=== PATIENT | male | born 1945 | race Caucasian/White ===

== ENCOUNTER 2016-11-19 09:50 | Inpatient (IN) | payer MEDICARE, OTHER ==
[2016-11-19] VITALS (8 sets, daily range): BP systolic 71–83; BP diastolic 39–64; PULSE 80–106; RESP 16–26; TEMP 97.8–97.9; O2SAT 96–99
[~2016-11-19] VITALS: Ht 180.3 cm; Wt 69.0 kg
--- NOTE | 2016-11-19 10:07 | PD ---
HPI Chief Complaint: CP Time Seen by Provider: 10:04 Travel History International Travel<30 days: No Contact w/Intl Traveler<30days: No Traveled to known affect area: No History of Present Illness HPI [facility] WHEN HE DEVELOPED CHEST PRESSURE, NONRAD, 12/04, GIV[place] [facility] AT [place], HELD NTG DUE TO NOTED LOW BP OF 70'S CONFIRMED BY [facility], EMS STARTED IV AND GAVE 300ML OF NS. PATIENT'S CHEST PRESSURE IS DECREASED DOWN TO 0-1/ 10....UNSURE WHAT ALLEVIATED SYMPTOMS, NO AGGRAVATING SYMPTOMS. PT HAS PREVIOUS H/O 2 CARDIAC STENTS PFSH Past Medical History Hx Anticoagulant Therapy: Yes (asa) Cardiac Catheterization: Yes Cardiovascular Problems: Yes COPD: Yes Hypertension: Yes Musculoskeletal: Yes (MS ) Myocardial Infarction: Yes Past Surgical History Coronary Stent: Yes (X2) Social History Alcohol Use: No Tobacco Use: No (QUIT 3 YEARS AGO ) Substance Use: No Allergies-Medications (Allergen,Severity, Reaction): Coded Allergies: Oxacillin (Verified Allergy, Unknown, 11/19/16) Reported Meds & Prescriptions Reported Meds & Active Scripts Active Reported Losartan (Losartan Potassium) 25 Mg Tab 12.5 Mg PO DAILY Baclofen 10 Mg Tab 10 Mg PO TID Multi-Vitamin Daily (Multiple Vitamin) 1 Tab Tab 1 Tab PO DAILY Diclofenac Topical 1% Gel 1 Applic TOPICAL BID Amantadine (Amantadine HCl) 100 Mg Tab 200 Mg PO DAILY IN THE PM Amantadine (Amantadine HCl) 100 Mg Tab 100 Mg PO DAILY IN THE AM Alfuzosin HCl ER (Alfuzosin HCl) 10 Mg Tab 10 Mg PO DAILY Omeprazole 20 Mg Tab 40 Mg PO BID Take 30 minutes before meals twice a day Aspirin Adult Low Strength (Aspirin) 81 Mg Tabdr 81 Mg PO DAILY [place] Opth Drops (Ketotifen Opth Drops) 0.025% Drops 1 Drop EACH EYE BID Refresh Plus Unit-Dose 0.5% Opth (Carboxymethylcellulose Sodium 0.5% Opth) 0.5% Drops 1 Drop EACH EYE QID PRN Fexofenadine (Fexofenadine HCl) 180 Mg Tab 180 Mg PO DAILY Ensure Plus (Nutritional Supplements) 1 Liq Liq 1 Can PO TID Vitamin D3 (Cholecalciferol) 1,000 Unit Tab 2,000 Units PO DAILY IN THE PM Vitamin D3 (Cholecalciferol) 1,000 Unit Tab 1,000 Units PO DAILY IN THE AM Prednisone 5 Mg Tab 5 Mg PO DAILY Lasix (Furosemide) 20 Mg Tab 40 Mg PO MOWEFR Take 2 tablets (40mg) daily on Thursday,Thursday and Thursday Lasix (Furosemide) 20 Mg Tab 20 Mg PO SUTUTHSA Take 1 tablet (20mg) daily on Thursday,Thursday, and Thursday Potassium Chloride ER (Potassium Chloride) 20 Meq Tab 20 Meq PO DAILY Isosorbide Mononitrate ER (Isosorbide Mononitrate) 30 Mg Marla 30 Mg PO DAILY Coreg (Carvedilol) 6.25 Mg Tab 6.25 Mg PO BID Atorvastatin (Atorvastatin Calcium) 80 Mg Tab 80 Mg PO HS Review of Systems Except as stated in HPI: all other systems reviewed are Neg Cardiovascular: Positive: Chest Pain or Discomfort Physical Exam Narrative GENERAL: SKIN: Warm and dry. HEAD: Atraumatic. Normocephalic. EYES: Pupils equal and round. No scleral icterus. No injection or drainage. ENT: No nasal bleeding or discharge. Mucous membranes pink and moist. NECK: Trachea midline. No JVD. CARDIOVASCULAR: Regular rate and rhythm. RESPIRATORY: No accessory muscle use. Clear to auscultation. Breath sounds equal bilaterally. GASTROINTESTINAL: Abdomen soft, non-tender, nondistended. Hepatic and splenic margins not palpable. MUSCULOSKELETAL: Extremities without clubbing, cyanosis, or edema. No obvious deformities. NEUROLOGICAL: Awake and alert. No obvious cranial nerve deficits. Motor grossly within normal limits. Five out of 5 muscle strength in the arms and legs. Normal speech. PSYCHIATRIC: Appropriate mood and affect; insight and judgment normal. Data Data Last Documented VS Vital Signs Date Time Temp Pulse Resp B/P Pulse Ox O2 Delivery O2 Flow Rate FiO2 11/19/16 10:08 97 Room Air 11/19/16 10:08 17 11/19/16 10:08 82 83/52 82/49 11/19/16 10:01 97.9 Orders Electrocardiogram (11/19/16 10:07) B-Type Natriuretic Peptide (11/19/16 10:07) Ckmb (Isoenzyme) Profile (11/19/16 10:07) Complete Blood Count With Diff (11/19/16 10:07) Comprehensive Metabolic Panel (11/19/16 10:07) D-Dimer (11/19/16 10:07) Prothrombin Time / Inr (Pt) (11/19/16 10:07) Act Partial Throm Time (Ptt) (11/19/16 10:07) Troponin I (11/19/16 10:07) Lipase (11/19/16 10:07) Chest, Single Ap (11/19/16 10:07) Ecg Monitoring (11/19/16 10:07) Bilateral Bp Monitoring (11/19/16 10:07) Iv Access Insert/Monitor (11/19/16 10:07) Oximetry (11/19/16 10:07) Oxygen Administration (11/19/16 10:07) Sodium Chloride 0.9% Flush (Ns Flush) (11/19/16 10:15) Sodium Chlorid 0.9% 500 Ml Inj (Ns 500 M (11/19/16 10:15) Ventilation & Perfusion Scan (11/19/16 ) Labs Laboratory Tests Test 11/19/16 10:10 White Blood Count 17.1 TH/MM3 Red Blood Count 4.41 MIL/MM3 Hemoglobin 11.4 GM/DL Hematocrit 34.8 % Mean Corpuscular Volume 78.9 FL Mean Corpuscular Hemoglobin 25.8 PG Mean Corpuscular Hemoglobin 32.7 % Concent Red Cell Distribution Width 15.7 % Platelet Count 200 TH/MM3 Mean Platelet Volume 9.5 FL Neutrophils (%) (Auto) 94.4 % Lymphocytes (%) (Auto) 1.3 % Monocytes (%) (Auto) 2.7 % Eosinophils (%) (Auto) 0.6 % Basophils (%) (Auto) 1.0 % Neutrophils # (Auto) 16.1 TH/MM3 Lymphocytes # (Auto) 0.2 TH/MM3 Monocytes # (Auto) 0.5 TH/MM3 Eosinophils # (Auto) 0.1 TH/MM3 Basophils # (Auto) 0.2 TH/MM3 CBC Comment DIFF FINAL Differential Comment Prothrombin Time 14.8 SEC Prothromb Time International 1.3 RATIO Ratio Activated Partial 36.1 SEC Thromboplast Time D-Dimer Quantitative (PE/DVT) 1.47 MG/L FEU Sodium Level 136 MEQ/L Potassium Level 3.8 MEQ/L Chloride Level 101 MEQ/L Carbon Dioxide Level 22.9 MEQ/L Anion Gap 12 MEQ/L Blood Urea Nitrogen 30 MG/DL Creatinine 1.52 MG/DL Estimat Glomerular Filtration 45 ML/MIN Rate Random Glucose 166 MG/DL Calcium Level 8.2 MG/DL Total Bilirubin 0.5 MG/DL Aspartate Amino Transf 14 U/L (AST/SGOT) Alanine Aminotransferase 38 U/L (ALT/SGPT) Alkaline Phosphatase 122 U/L Total Creatine Kinase 36 U/L Troponin I 0.05 NG/ML B-Type Natriuretic Peptide 1302 PG/ML Total Protein 6.0 GM/DL Albumin 2.2 GM/DL Lipase 40 U/L MDM Medical Decision Making Medical Screen Exam Complete: Yes Emergency Medical Condition: Yes Medical Record Reviewed: Yes Interpretation(s) NSR 84, BIFASCICULAR BLOCK WITH SINUS ARRHYTHMIA NOTED...NONSPEC STT CHANGES Differential Diagnosis VT V NONSTEMI V PNA V PTX V PE Narrative Course PATIENT WAS FOUND TO HAVE RENAL INSUFFICIENCY, ELEV DDIMER AND THUS HIGH RISK IF CT ANGIO PE, INSTEAD V/Q SCAN ORDERED TO R/O PULM EMBOLUS CAUSE OF CP. ADDITIONALLY, CASE D/W [facility]PAS FOR ADMISSION, HOWEVER DUE TO MULTIPLE LAB ABNORMALITIES NOT A SECURITY ADMINISTRATOR CANDIDATE....CXR NEG FOR CONSOLIDATION/SUGGESTION OF PNA.. Diagnosis Primary Impression: CP R/O VT Additional Impressions: LEUKOCYTOSIS NOS ELEVATED BNP,D DIMER Admitting Information Admitting Physician Requests: Observation Isidro Bruce MD Nov 19, 2016 10:07
[2016-11-19] MEDS ORDERED: SODIUM CHLORIDE 0.9% FLUSH 10 ML FLUSH IVF PRN (10:15)
[2016-11-19] MEDS ORDERED: SODIUM CHLORID 0.9% 500 ML INJ 500 ML IV ONE (10:15)
[2016-11-19 10:46] LABS: AUTOMATED NEUTROPHIL # 16.1 TH/MM3 (1.8-7.7); BASOPHIL # 0.2 TH/MM3 (0-0.2); EOSINOPHIL # 0.1 TH/MM3 (0-0.4); EOSINOPHIL % 0.6 % (0.0-4.0); HEMATOCRIT 34.8 % (39.0-51.0); HEMO FLAGS DIFF FINAL; LYMPH % 1.3 % (9.0-44.0); LYMPHOCYTE # 0.2 TH/MM3 (1.0-4.8); MEAN CELL VOLUME 78.9 FL (80.0-100.0); MEAN CORPUSCULAR HEMOGLOBIN 25.8 PG (27.0-34.0); MEAN CORPUSCULAR HGB CONC 32.7 % (32.0-36.0); MONO % 2.7 % (0.0-8.0); NEUT % 94.4 % (16.0-70.0); PLATELET COUNT 200 TH/MM3 (150-450); RED BLOOD COUNT 4.41 MIL/MM3 (4.50-5.90); RED CELL DISTRIBUTION WIDTH 15.7 % (11.6-17.2); WHITE BLOOD COUNT 17.1 TH/MM3 (4.0-11.0)
[2016-11-19 11:00] LABS: APTT (PATIENT) 36.1 SEC (24.3-30.1); INTERNATIONAL NORMALIZED RATIO 1.3 RATIO; PROTHROMBIN TIME - PATIENT 14.8 SEC (9.8-11.6)
[2016-11-19 11:17] LABS: ALT (GPT) 38 U/L (12-78); ANION GAP 12 MEQ/L (5-15); AST (GOT) 14 U/L (15-37); BICARBONATE 22.9 MEQ/L (21.0-32.0); BLOOD UREA NITROGEN 30 MG/DL (7-18); CHLORIDE 101 MEQ/L (98-107); GLOMERULAR FILTRATION RATE 45 ML/MIN (>89); POTASSIUM 3.8 MEQ/L (3.5-5.1); SODIUM (NA) 136 MEQ/L (136-145)
[2016-11-19 11:20] LABS: ALKALINE PHOSPHATASE 122 U/L (45-117); TOTAL BILIRUBIN ADULT 0.5 MG/DL (0.2-1.0)
[2016-11-19 11:22] LABS: CREATINE KINASE 36 U/L (39-308)
[2016-11-19] MEDS ORDERED: AMAN100T PO ×2 (11:58)
[2016-11-19] MEDS ORDERED: ALFU10TA3 PO (11:58)
[2016-11-19] MEDS ORDERED: ATOR1TAB18 PO (11:58)
[2016-11-19] MEDS ORDERED: ASPI1TAB91 PO (11:58)
[2016-11-19] MEDS ORDERED: LOSA25TA PO (11:58)
[2016-11-19] MEDS ORDERED: ALAW0.02 EACH EYE (11:58)
[2016-11-19] MEDS ORDERED: PRED5TAB PO (11:58)
[2016-11-19] MEDS ORDERED: FEXO180T PO (11:58)
[2016-11-19] MEDS ORDERED: DICL1GEL7 TOPICAL (11:58)
[2016-11-19] MEDS ORDERED: VITA100064 PO ×2 (11:58)
[2016-11-19] MEDS ORDERED: CARV6.25 PO (11:58)
[2016-11-19] MEDS ORDERED: MULT-65 PO (11:58)
[2016-11-19] MEDS ORDERED: POTA-163 PO (11:58)
[2016-11-19] MEDS ORDERED: BACL10TA PO (11:58)
[2016-11-19] MEDS ORDERED: REFR0.5D9 EACH EYE (11:58)
[2016-11-19] MEDS ORDERED: OMEP20TA PO (11:58)
[2016-11-19] MEDS ORDERED: ENSULIQ8 PO (11:58)
[2016-11-19] MEDS ORDERED: FURO1TAB62 PO ×2 (11:58)
[2016-11-19] MEDS ORDERED: ISOS30TA3 PO (11:58)
--- NOTE | 2016-11-19 12:06 | RADRPT ---
EXAM DATE/TIME: 11/19/2016 10:29 [facility] COMPARISON: CHEST SINGLE AP, December 15, 2015, 14:54. INDICATIONS : Chest pain, short of breath. MEDICAL HISTORY : Chronic obstructive pulmonary disease. Multiple sclerosis. Myocardial infarct ion. SURGICAL HISTORY : Coronary artery stent. ENCOUNTER: Initial ACUITY: 1 day PAIN SCORE: 6/10 LOCATION: Bilateral chest FINDINGS: Linear scarring noted in the right upper lobe. Minimal interstitial prominence unchanged from prior e xam. Cardiomediastinal contours are stable with continued mild prominence of the mediastinum likely d ue to tortuous aorta. Remainder of the exam is unchanged. CONCLUSION: 1. No acute cardiopulmonary disease. Khadar Thakkar MD on November 19, 2016 at 12:03 Board Certified Radiologist. This report was verified electronically.
[2016-11-19] MEDS ORDERED: SODIUM CHLORIDE 0.9% FLUSH 10 ML FLUSH IV FLUSH PRN (13:15)
[2016-11-19] MEDS ORDERED: ACETAMINOPHEN 325 MG TAB PO PRN ×2 (13:15)
[2016-11-19] MEDS ORDERED: NALOXONE HCL 0.4 MG/ML AMP IV PRN (13:15)
--- NOTE | 2016-11-19 13:53 | RADRPT ---
EXAM DATE/TIME: 11/19/2016 12:46 [facility] COMPARISON: CHEST SINGLE AP, November 19, 2016, 10:29. INDICATIONS : Chest pain and dyspnea. DOSE: 8.8 mCi Tc99m MAA IV 1.4 mCi Tc99m DTPA aerosol MEDICAL HISTORY : Chronic obstructive pulmonary disease. Multiple sclerosis. Myocardial infarction. Hypertension. SURGICAL HISTORY : Coronary artery stent. ENCOUNTER: Initial ACUITY: 1 day PAIN SCALE: 4/10 LOCATION: Left chest TECHNIQUE: Following five minutes of tidal breathing of DTPA aerosol, planar images of the lungs were performed in eight projections. The patient was then injected with MAA, and eight-view perfusion scan was perf ormed. FINDINGS: There are small nonsegmental and occasional matched ventilation/perfusion abnormalities. No significa nt mismatches are identified to indicate likelihood of pulmonary embolism. CONCLUSION: Low probability scan for pulmonary embolism. Rod Hdez MD on November 19, 2016 at 13:47 Board Certified Radiologist. This report was verified electronically.
--- NOTE | 2016-11-19 14:42 | HHI.HP ---
[facility] Admission Diagnosis CP R/O ND, ELEVATED BNP/D DIMER R/O PE Diagnoses: (1) Atypical chest pain (2) Acute on chronic systolic congestive heart failure (3) Acute renal failure Chief Complaint: Chest pressure Travel History International Travel<30 Days: No Contact w/Intl Traveler <30 Da: No Traveled to Known Affected Are: No History of Present Illness 21-year-old male with a history of systolic CHF, coronary artery disease was sent from the [place] to the ED for evaluation of an acute onset of chest pressure as well as hypotension while patient was awaiting for his appointment today. Patient states around 7:30 AM he experience chest pressure rated 7/10 in intensity associated with lightheadedness, dizziness along with shortness of breath. EMS was called, and patient was noted to have low BP for which he was given 300 cc bolus. Patient during my exam denies any chest pain or pressure has no bilateral lower extremity edema. Over his blood pressure remained low but patient is asymptomatic. BNP of 1300+ however chest x-ray without any evidence of pulmonary edema Review of Systems Except as stated in HPI: all other systems reviewed are Neg Past Family Social History Past Medical History Cardiovascular Problems: Yes COPD: Yes Hypertension: Yes Myocardial Infarction Past Surgical History Coronary Stent: Yes (X2) Reported Medications Losartan (Losartan Potassium) 25 Mg Tab 12.5 Mg PO DAILY Baclofen 10 Mg Tab 10 Mg PO TID Multi-Vitamin Daily (Multiple Vitamin) 1 Tab Tab 1 Tab PO DAILY Diclofenac Topical 1% Gel 1 Applic TOPICAL BID Amantadine (Amantadine HCl) 100 Mg Tab 200 Mg PO DAILY IN THE PM Amantadine (Amantadine HCl) 100 Mg Tab 100 Mg PO DAILY IN THE AM Alfuzosin HCl ER (Alfuzosin HCl) 10 Mg Tab 10 Mg PO DAILY Omeprazole 20 Mg Tab 40 Mg PO BID Take 30 minutes before meals twice a day Aspirin Adult Low Strength (Aspirin) 81 Mg Tabdr 81 Mg PO DAILY [place] Opth Drops (Ketotifen Opth Drops) 0.025% Drops 1 Drop EACH EYE BID Refresh Plus Unit-Dose 0.5% Opth (Carboxymethylcellulose Sodium 0.5% Opth) 0.5% Drops 1 Drop EACH EYE QID PRN Fexofenadine (Fexofenadine HCl) 180 Mg Tab 180 Mg PO DAILY Ensure Plus (Nutritional Supplements) 1 Liq Liq 1 Can PO TID Vitamin D3 (Cholecalciferol) 1,000 Unit Tab 2,000 Units PO DAILY IN THE PM Vitamin D3 (Cholecalciferol) 1,000 Unit Tab 1,000 Units PO DAILY IN THE AM Prednisone 5 Mg Tab 5 Mg PO DAILY Lasix (Furosemide) 20 Mg Tab 40 Mg PO MOWEFR Take 2 tablets (40mg) daily on Thursday,Thursday and Thursday Lasix (Furosemide) 20 Mg Tab 20 Mg PO SUTUTHSA Take 1 tablet (20mg) daily on Thursday,Thursday, and Thursday Potassium Chloride ER (Potassium Chloride) 20 Meq Tab 20 Meq PO DAILY Isosorbide Mononitrate ER (Isosorbide Mononitrate) 30 Mg Marla 30 Mg PO DAILY Coreg (Carvedilol) 6.25 Mg Tab 6.25 Mg PO BID Atorvastatin (Atorvastatin Calcium) 80 Mg Tab 80 Mg PO HS Allergies: Coded Allergies: Oxacillin (Verified Allergy, Unknown, 11/19/16) Family History Mother had CVA, CAD and myocardial infarction Social History Alcohol Use: No Tobacco Use: No (QUIT 3 YEARS AGO ) Substance Use: No Physical Exam Vital Signs Vital Signs Date Time Temp Pulse Resp B/P Pulse Ox O2 Delivery O2 Flow Rate FiO2 11/19/16 14:05 80 16 71/39 96 Nasal Cannula 2 11/19/16 10:08 97 Room Air 11/19/16 10:08 17 97 Room Air 11/19/16 10:08 82 17 83/52 97 Room Air 82/49 11/19/16 10:02 86 17 97 Room Air 11/19/16 10:01 97.9 86 17 83/52 98 Physical Exam GENERAL: This is a well-nourished, well-developed patient, in no apparent distress. SKIN: No rashes, ecchymoses or lesions. Cool and dry. HEAD: Atraumatic. Normocephalic. No temporal or scalp tenderness. EYES: Pupils equal round and reactive. Extraocular motions intact. No scleral icterus. No injection or drainage. ENT: Nose without bleeding, purulent drainage or septal hematoma. Throat without erythema, tonsillar hypertrophy or exudate. Uvula midline. Airway patent. NECK: Trachea midline. No JVD or lymphadenopathy. Supple, nontender, no meningeal signs. CARDIOVASCULAR: Regular rate and rhythm without murmurs, gallops, or rubs. RESPIRATORY: Clear to auscultation. Breath sounds equal bilaterally. No wheezes , rales, or rhonchi. GASTROINTESTINAL: Abdomen soft, non-tender, nondistended. No hepato-splenomegaly , or palpable masses. No guarding. MUSCULOSKELETAL: Extremities without clubbing, cyanosis, or edema. No joint tenderness, effusion, or edema noted. No calf tenderness. Negative Homans sign bilaterally. NEUROLOGICAL: Awake and alert. Cranial nerves II through XII intact. Motor and sensory grossly within normal limits. Five out of 5 muscle strength in all muscle groups. Normal speech. Laboratory Laboratory Tests Test 11/19/16 10:10 White Blood Count 17.1 Red Blood Count 4.41 Hemoglobin 11.4 Hematocrit 34.8 Mean Corpuscular Volume 78.9 Mean Corpuscular Hemoglobin 25.8 Mean Corpuscular Hemoglobin 32.7 Concent Red Cell Distribution Width 15.7 Platelet Count 200 Mean Platelet Volume 9.5 Neutrophils (%) (Auto) 94.4 Lymphocytes (%) (Auto) 1.3 Monocytes (%) (Auto) 2.7 Eosinophils (%) (Auto) 0.6 Basophils (%) (Auto) 1.0 Neutrophils # (Auto) 16.1 Lymphocytes # (Auto) 0.2 Monocytes # (Auto) 0.5 Eosinophils # (Auto) 0.1 Basophils # (Auto) 0.2 CBC Comment DIFF FINAL Differential Comment Prothrombin Time 14.8 Prothromb Time International 1.3 Ratio Activated Partial 36.1 Thromboplast Time D-Dimer Quantitative (PE/DVT) 1.47 Sodium Level 136 Potassium Level 3.8 Chloride Level 101 Carbon Dioxide Level 22.9 Anion Gap 12 Blood Urea Nitrogen 30 Creatinine 1.52 Estimat Glomerular Filtration 45 Rate Random Glucose 166 Calcium Level 8.2 Total Bilirubin 0.5 Aspartate Amino Transf 14 (AST/SGOT) Alanine Aminotransferase 38 (ALT/SGPT) Alkaline Phosphatase 122 Total Creatine Kinase 36 Troponin I 0.05 B-Type Natriuretic Peptide 1302 Total Protein 6.0 Albumin 2.2 Lipase 40 Result Diagram: 11/19/16 1010 11/19/16 1010 Imaging Last Impressions Chest X-Ray 11/19/16 1007 Signed Impressions: Service Date/Time: Saturday, November 19, 2016 10:29 - CONCLUSION: 1. No acute cardiopulmonary disease. Khadar Thakkar MD Lung Scan-VQ Nuclear Medicine 11/19/16 0000 Signed Impressions: Service Date/Time: Saturday, November 19, 2016 12:46 - CONCLUSION: Low probability scan for pulmonary embolism. Rod Hdez MD Assessment and Plan Problem List: (1) Atypical chest pain ICD Code: R07.89 Status: Acute (2) Acute on chronic systolic congestive heart failure ICD Code: I50.23 Status: Acute (3) Acute renal failure ICD Code: N17.9 Status: Acute Assessment and Plan 71-year-old man with Atypical chest pain ACS rule out per protocol with serial cardiac enzyme and EKGs Consider stress test if abnormal cardiac enzyme Nitroglycerin contraindicated secondary to hypotension VQ scan with low probability for PE Continue aspirin and statin, however hold beta abliio secondary to hypotension Resume Imdur in a.m. 2-D echo pending Systolic CHF Chest x-ray noted and review by me without any cardio pulmonary disease Due to hypotension with hold Lasix Resume Imdur in a.m. Hypotension Will give 300cc bolus NS and monitor Hold beta abilio Hyperlipidemia Resume statin DVT prophylaxis: Bilateral SCDs Code Status Full code Discussed Condition With Patient, ED physician Physician Certification 2 Midnight Certification Type: Admission for Inpatient Services Order for Inpatient Services The services are ordered in accordance with Medicare regulations or non- Medicare payer requirements, as applicable. In the case of services not specified as inpatient-only, they are appropriately provided as inpatient services in accordance with the 2-midnight benchmark. Estimated LOS (days): 2 days is the estimated time the patient will need to remain in the hospital, assuming treatment plan goals are met and no additional complications. Post-Hospital Plan: Not yet determined Liang Shaikh MD Nov 19, 2016 14:42
[2016-11-19] MEDS ORDERED: SODIUM CHLOR 0.9% 250 ML INJ 250 ML IV ONE (15:30)
--- NOTE | 2016-11-19 20:12 | EKG ---
Date Performed: 11/19/2016 Time Performed: 10:08:28 PTAGE: 71 years EKG: Sinus rhythm WITH SINUS ARRHYTHMIA RIGHT BUNDLE BRANCH BLOCK LEFT ANTERIOR FASCICULAR BLOCK OLD ANTEROSEPTAL MYOC ARDIAL INFARCTION ABNORMAL ECG PREVIOUS TRACING : 12/15/2015 16.07 Compared to prior tracing no significant change DOCTOR: Laurence Sylvester Interpretating Date/Time 11/19/2016 20:11:51
[2016-11-19] MEDS: ATORVASTATIN 80 MG TAB PO SCH (22:39)
[2016-11-19] MEDS: SODIUM CHLORIDE 0.9% FLUSH 10 ML FLUSH IV FLUSH SCH (22:39)
[2016-11-20] VITALS (16 sets, daily range): BP systolic 85–124; BP diastolic 51–66; PULSE 82–126; RESP 14–20; TEMP 97.2–98.6; O2SAT 94–98
[2016-11-20 07:27] LABS: AUTOMATED NEUTROPHIL # 14.9 TH/MM3 (1.8-7.7); BASOPHIL # 0.1 TH/MM3 (0-0.2); BASOPHIL % 0.7 % (0.0-2.0); EOSINOPHIL # 0.2 TH/MM3 (0-0.4); EOSINOPHIL % 1.2 % (0.0-4.0); HEMATOCRIT 34.1 % (39.0-51.0); HEMO FLAGS DIFF FINAL; LYMPH % 2.6 % (9.0-44.0); LYMPHOCYTE # 0.4 TH/MM3 (1.0-4.8); MEAN CELL VOLUME 79.4 FL (80.0-100.0); MEAN CORPUSCULAR HEMOGLOBIN 25.8 PG (27.0-34.0); MEAN CORPUSCULAR HGB CONC 32.4 % (32.0-36.0); MONO % 3.6 % (0.0-8.0); NEUT % 91.9 % (16.0-70.0); PLATELET COUNT 214 TH/MM3 (150-450); RED CELL DISTRIBUTION WIDTH 16.1 % (11.6-17.2); WHITE BLOOD COUNT 16.2 TH/MM3 (4.0-11.0)
[2016-11-20] MEDS: predniSONE 5 MG TAB PO SCH (07:59)
[2016-11-20] MEDS: ASPIRIN EC 81 MG TABEC PO SCH (08:00)
[2016-11-20] MEDS: SODIUM CHLORIDE 0.9% FLUSH 10 ML FLUSH IV FLUSH SCH ×2 (08:00→20:28)
[2016-11-20] MEDS: ISOSORBIDE MONONITRATE 30 MG TAB PO SCH (08:01)
[2016-11-20 08:06] LABS: ANION GAP 10 MEQ/L (5-15); AST (GOT) 14 U/L (15-37); BICARBONATE 22.8 MEQ/L (21.0-32.0); BLOOD UREA NITROGEN 38 MG/DL (7-18); CHLORIDE 104 MEQ/L (98-107); GLOMERULAR FILTRATION RATE 40 ML/MIN (>89); POTASSIUM 4.3 MEQ/L (3.5-5.1); SODIUM (NA) 137 MEQ/L (136-145)
[2016-11-20 08:07] LABS: ALT (GPT) 34 U/L (12-78)
[2016-11-20 08:10] LABS: ALKALINE PHOSPHATASE 148 U/L (45-117); TOTAL BILIRUBIN ADULT 0.6 MG/DL (0.2-1.0)
[2016-11-20] MEDS: AMANTADINE HCL 100 MG CAP PO SCH (08:14)
--- NOTE | 2016-11-20 08:37 | HHI.PR ---
Subjective Remarks Follow up shortness of breath 11/20/16-patient seen and examined; denies any significant shortness of breath or chest pain. BP low but patient is asymptomatic; HR slightly up.Afebrile Objective Vitals Vital Signs Date Time Temp Pulse Resp B/P Pulse Ox O2 Delivery O2 Flow Rate FiO2 11/20/16 01:49 97.2 109 18 94/52 96 11/20/16 00:00 96 20 96/58 98 Nasal Cannula 2 11/19/16 22:41 106 26 82/64 98 Room Air 11/19/16 21:35 90 18 83/52 98 Room Air 11/19/16 20:00 90 19 78/48 Room Air 11/19/16 18:35 80/52 11/19/16 17:15 97.8 84 16 80/51 99 Room Air 11/19/16 14:05 80 16 71/39 96 Nasal Cannula 2 11/19/16 10:08 97 Room Air 11/19/16 10:08 17 97 Room Air 11/19/16 10:08 82 17 83/52 97 Room Air 82/49 11/19/16 10:02 86 17 97 Room Air 11/19/16 10:01 97.9 86 17 83/52 98 Result Diagram: 11/20/16 0607 11/20/16 0607 Imaging Last Impressions Chest X-Ray 11/19/16 1007 Signed Impressions: Service Date/Time: Saturday, November 19, 2016 10:29 - CONCLUSION: 1. No acute cardiopulmonary disease. Khadar Thakkar MD Lung Scan- Nuclear Medicine 11/19/16 0000 Signed Impressions: Service Date/Time: Saturday, November 19, 2016 12:46 - CONCLUSION: Low probability scan for pulmonary embolism. Rod Hdez MD Objective Remarks GENERAL: NAD SKIN: Warm and dry. HEAD: Normocephalic. EYES: No scleral icterus. No injection or drainage. NECK: Supple, trachea midline. No JVD or lymphadenopathy. CARDIOVASCULAR: Regular rate and rhythm without murmurs, gallops, or rubs. RESPIRATORY: Breath sounds decrease in Left lung bilaterally. No accessory muscle use. GASTROINTESTINAL: Abdomen soft, non-tender, nondistended. MUSCULOSKELETAL: No cyanosis, or edema. BACK: Nontender without obvious deformity. No CVA tenderness. A/P Problem List: (1) Atypical chest pain ICD Code: R07.89 Status: Acute (2) Acute on chronic systolic congestive heart failure ICD Code: I50.23 Status: Acute (3) Acute renal failure ICD Code: N17.9 Status: Acute (4) Hypotension ICD Code: I95.9 Status: Acute Assessment and Plan 71-year-old man with Atypical chest pain ACS ruled out per protocol with serial cardiac enzyme and EKGs Consider stress test if abnormal cardiac enzyme Nitroglycerin contraindicated secondary to hypotension VQ scan with low probability for PE Continue aspirin and statin, however hold beta abilio secondary to hypotension 2-D echo pending Systolic CHF Chest x-ray noted and review by me without any cardio pulmonary disease Due to hypotension with hold Lasix Imdur with holding parameters Hypotension Start Midodrine 5mg TID Hold all oral anti hypertensive meds Hyperlipidemia continue statin DVT prophylaxis: Bilateral SCDs Liang Shaikh MD Nov 20, 2016 08:37
[2016-11-20] MEDS ORDERED: RESP: ALBUTEROL 2.5 MG/IPRATROPIUM 0.5 MG NEB (PRN) NEB (08:45)
[2016-11-20] MEDS: MIDODRINE 5 MG TAB PO SCH ×3 (10:00→17:00)
--- NOTE | 2016-11-20 11:15 | ECHRPT ---
Indication: Heart failure, unspecified CONCLUSIONS The left ventricular systolic function is severely reduced with an estimated ejection fraction in th e range of 20-25%. Moderately dilated left ventricle. Global hypokineses with apical akinesis. The left atrial size is mildly dilated. No mitral valve stenosis moderate valve regurgitation. [id number] mitral valve regurgitation. The pulmonary valve is not well visualized. BP: 82 / 49 HR: 82 Rhythm: MEASUREMENTS (Male / Female) Normal Values Technical Quality:Good 2D ECHO LV Diastolic Diameter PLAX 6.6 cm 4.2 - 5.9 / 3.9 - 5.3 cm LV Systolic Diameter PLAX 5.8 cm IVS Diastolic Thickness 0.7 cm 0.6 - 1.0 / 0.6 - 0.9 cm LVPW Diastolic Thickness 0.8 cm 0.6 - 1.0 / 0.6 - 0.9 cm LV Relative Wall Thickness 0.2 RV Internal Dim ED PLAX 1.8 cm M-MODE Aortic Root Diameter MM 2.9 cm LA Systolic Diameter MM 4.2 cm LA Ao Ratio MM 1.4 AV Cusp Separation MM 1.7 cm DOPPLER Mitral E Point Velocity 85.9 cm/s Mitral A Point Velocity 55.8 cm/s Mitral E to A Ratio 1.5 LV E' Lateral Velocity 7.3 cm/s Mitral E to LV E' Lateral Ratio 11.8 FINDINGS LEFT VENTRICLE The left ventricular systolic function is severely reduced with an estimated ejection fraction in th e range of 20-25%. Moderately dilated left ventricle. Global hypokineses with apical akinesis. RIGHT VENTRICLE Normal right ventricular size and systolic function. LEFT ATRIUM The left atrial size is mildly dilated. RIGHT ATRIUM The right atrial size is normal. ATRIAL SEPTUM Normal atrial septal thickness without atrial level shunting by limited color doppler interrogation. AORTA The aortic root and proximal ascending aorta are normal in size on limited imaging. MITRAL VALVE Structurally normal mitral valve. No mitral valve stenosis moderate valve regurgitation. Structurally normal mitral valve. [id number] mitral valve regurgitation. AORTIC VALVE Trileaflet aortic valve. No aortic valve stenosis or regurgitation. TRICUSPID VALVE Structurally normal tricuspid valve. No tricuspid valve stenosis or regurgitation. PULMONARY VALVE The pulmonary valve is not well visualized. VESSELS The inferior vena cava is normal in size. PERICARDIUM No pericardial effusion. Donte Alicea MD (Electronically Signed) Final Date:20 November 2016 11:14
--- NOTE | 2016-11-20 12:39 | EKG ---
Date Performed: 11/20/2016 Time Performed: 09:16:02 PTAGE: 71 years EKG: Sinus rhythm RIGHT BUNDLE BRANCH BLOCK LEFT ANTERIOR FASCICULAR BLOCK ANTERIOR MYOCARDIAL INFARCTION ABNORMAL ECG PREVIOUS TRACING : 11/19/2016 22.33 DOCTOR: Cosme Pacheco Interpretating Date/Time 11/20/2016 12:37:00
--- NOTE | 2016-11-20 12:49 | EKG ---
Date Performed: 11/19/2016 Time Performed: 22:33:00 PTAGE: 71 years EKG: SINUS TACHYCARDIA RIGHT BUNDLE BRANCH BLOCK LEFT ANTERIOR FASCICULAR BLOCK ANTEROSEPTAL RAQUEL CARDIAL INFARCTION ABNORMAL ECG PREVIOUS TRACING : 11/19/2016 16.15 DOCTOR: Cosme Pacheco Interpretating Date/Time 11/20/2016 12:46:32
--- NOTE | 2016-11-20 12:56 | EKG ---
Date Performed: 11/19/2016 Time Performed: 16:15:14 PTAGE: 71 years EKG: Sinus rhythm MARKED LEFT AXIS DEVIATION INTRAVENTRICULAR CONDUCTION DELAY ANTEROSEPTAL MYOCARDIAL INFARCTION ABNO RMAL ECG PREVIOUS TRACING : 11/19/2016 10.08 DOCTOR: Cosme Pacheco Interpretating Date/Time 11/20/2016 12:51:29
--- NOTE | 2016-11-20 13:51 | HHI.PR ---
Addendum to Inpatient Note Addendum Reason: Additional Documentation Additional Information Left lower inner buttock wound infection Wound care consult Obtain wound and blood cultures Start vancomycin IV daily A-fib with RVR Will try PO Amiodarone now and consider drip if no improvement Cardizem and BB contraindicated due to severe Hypotension Liang Shaikh MD Nov 20, 2016 13:51
[2016-11-20] MEDS ORDERED: VANCOMYCIN INJ 1,000 MG in SODIUM CHLOR 0.9% 250 ML INJ 250 ML IV SCH (14:00)
[2016-11-20] MEDS ORDERED: Vancomycin Consult Pharmacy 1 EA OTHER SCH (14:00)
[2016-11-20 14:46] LABS: BACTERIA, URINE RARE /hpf; BLOOD, URINE NEG (NEG); COMMENT (UR) CULTURE INDICATED; CULTURE IF INDICATED CULTURE INDICATED; GLUCOSE,URINE NEG (NEG); KETONE, URINE NEG (NEG); NITRITE,URINE NEG (NEG); PH, URINE 5.5 (5.0-8.5); URINE COLOR YELLOW (YELLW/STRAW)
[2016-11-20] MEDS ORDERED: AMIODARONE 200 MG TAB PO ONE (16:00)
[2016-11-20] MEDS ORDERED: PIPERACIL-TAZO 2.25 GM PREMIX 50 ML IV SCH (18:00)
[2016-11-20] MEDS: ATORVASTATIN 80 MG TAB PO SCH (20:27)
[2016-11-21] VITALS (28 sets, daily range): BP systolic 89–108; BP diastolic 56–66; PULSE 84–98; RESP 18–20; TEMP 97.7–98.9; O2SAT 94–98
[2016-11-21] MEDS: MIDODRINE 5 MG TAB PO SCH ×3 (05:55→17:49)
[2016-11-21] MEDS: ASPIRIN EC 81 MG TABEC PO SCH (08:35)
[2016-11-21] MEDS: ISOSORBIDE MONONITRATE 30 MG TAB PO SCH (08:35)
[2016-11-21] MEDS: SODIUM CHLORIDE 0.9% FLUSH 10 ML FLUSH IV FLUSH SCH ×2 (08:35→21:27)
[2016-11-21] MEDS: predniSONE 5 MG TAB PO SCH (08:35)
[2016-11-21] MEDS: AMANTADINE HCL 100 MG CAP PO SCH (08:57)
--- NOTE | 2016-11-21 09:30 | HHI.PR ---
Subjective Remarks Follow up shortness of breath 11/20/16-patient seen and examined; denies any significant shortness of breath or chest pain. BP low but patient is asymptomatic; HR slightly up.Afebrile 11/21/16-patient seen and examined, he was started yesterday on IV antibiotic secondary to left lower inner buttock wound and is currently afebrile. Patient was treated with amiodarone 200 mg 1 due to A. fib with RVR and patient currently rate control. Denies any chest pain or shortness of breath. Objective Vitals Vital Signs Date Time Temp Pulse Resp B/P Pulse Ox O2 Delivery O2 Flow Rate FiO2 11/21/16 09:01 96 11/21/16 08:15 97.7 91 18 89/60 94 11/21/16 08:15 88 11/21/16 07:01 91 11/21/16 06:00 92 11/21/16 05:01 92 11/21/16 04:03 98.4 90 20 97/65 97 11/21/16 04:00 88 11/21/16 03:00 88 11/21/16 02:00 90 11/21/16 01:00 86 11/21/16 00:00 87 11/20/16 23:19 98.6 84 20 89/56 96 11/20/16 23:00 82 11/20/16 22:00 82 11/20/16 21:00 94 11/20/16 20:00 92 11/20/16 19:26 120 11/20/16 19:26 97.8 120 20 100/66 96 11/20/16 18:00 126 11/20/16 17:00 88 11/20/16 16:30 126 11/20/16 16:30 97.7 124 18 85/65 95 11/20/16 15:59 98.4 110 14 124/54 94 11/20/16 15:04 118 92/54 Automatic Cuff 11/20/16 12:47 98.2 90 18 99/53 94 11/20/16 10:14 95 11/20/16 09:54 97.6 96 18 94/51 95 I/O 11/20/16 11/20/16 11/20/16 11/21/16 11/21/16 11/21/16 07:00 15:00 23:00 07:00 15:00 23:00 Intake Total 640 ml 200 ml Output Total 0 ml 100 ml Balance 640 ml 100 ml Intake Oral 340 ml 200 ml IV Total 300 ml 0 ml Output Urine Total 100 ml Emesis 0 ml 0 ml # Voids 3 3 # Bowel Movements 0 0 Result Diagram: 11/20/16 0607 11/21/16 0449 Imaging Last Impressions Chest X-Ray 11/19/16 1007 Signed Impressions: Service Date/Time: Saturday, November 19, 2016 10:29 - CONCLUSION: 1. No acute cardiopulmonary disease. Khadar Thakkar MD Lung Scan-VQ Nuclear Medicine 11/19/16 0000 Signed Impressions: Service Date/Time: Saturday, November 19, 2016 12:46 - CONCLUSION: Low probability scan for pulmonary embolism. Rod Hdez MD Objective Remarks GENERAL: NAD SKIN: Warm and dry. HEAD: Normocephalic. EYES: No scleral icterus. No injection or drainage. NECK: Supple, trachea midline. No JVD or lymphadenopathy. CARDIOVASCULAR: Regular rate and rhythm without murmurs, gallops, or rubs. RESPIRATORY: Breath sounds decrease in Left lung bilaterally. No accessory muscle use. GASTROINTESTINAL: Abdomen soft, non-tender, nondistended. MUSCULOSKELETAL: No cyanosis, or edema. BACK: Nontender without obvious deformity. No CVA tenderness. Dressing over left lower inner buttock wound A/P Problem List: (1) Atypical chest pain ICD Code: R07.89 Status: Acute (2) Acute on chronic systolic congestive heart failure ICD Code: I50.23 Status: Acute (3) Acute renal failure ICD Code: N17.9 Status: Acute (4) Hypotension ICD Code: I95.9 Status: Acute (5) Infected wound ICD Code: T14.8 Status: Acute (6) Atrial fibrillation with RVR ICD Code: I48.91 Status: Acute Assessment and Plan 71-year-old man with Left lower inner buttock wound Currently on IV vancomycin pending wound and blood culture Wound care nurse consult pending A. fib with RVR Responded well to amiodarone 200 mg by mouth 1 on 11/20/16 Beta abilio contraindicated secondary to hypotension Atypical chest pain ACS ruled out per protocol with serial cardiac enzyme and EKGs Nitroglycerin contraindicated secondary to hypotension VQ scan with low probability for PE Continue aspirin and statin, however hold beta abilio secondary to hypotension 2-D echo 20-25% however secondary to hypotension ESTELA inhibitor is contraindicated Systolic CHF Chest x-ray without any cardio pulmonary disease Due to hypotension with hold Lasix Imdur with holding parameters Hypotension Continue Midodrine 5mg TID Hold all oral anti hypertensive meds Hyperlipidemia continue statin DVT prophylaxis: Bilateral SCDs Liang Shaikh MD Nov 21, 2016 09:30
--- NOTE | 2016-11-21 14:49 | PD.WCN.NOT ---
Wound Consult Description: Consult for WOUND MANAGEMENT of buttock per Dr Shaikh/LANI Communicated with: ANA Dempsey Dr Recommendation: Left buttock/sacrum DAILY and PRN for soiling or dislodgement: Cleanse wounds with NS and gauze Pack wounds with Maxorb extra AG (cut in strip form) and cover with absorbant dressing (optilock or bordered gauze) Consult for possible I&D Additional Information: Patient seen on [facility] with ANA Dempsey at bedside during assessment. Patient was noted lying on his back on a Renate bed with 4 absorbant pads underneath him with condom cath found in bed, unattached, and a brief in place. Patient was positioned to his right side for assessment, brief removed, and 2 underpads removed. Foam adhesive and optilock dressing removed to reveal a wound on the sacrum (left side) and left inner buttock. Left side of sacrum wound is measuring 1.0cm x 1.4cm x 1.1cm of 100% yellow adherent slough opening at wound margins allowing for probe of depth. Wound was noted with minimal purulent drainage and when periwound was gently pressed, a moderate amount of beige/jose purulent drainage was noted coming out from underneath slough at wound margins. Periwound is noted with non blanching erythema. Distally to this wound is a left inner buttock wound measuring 3.6cm x 2.6cm x 1.6cm of 80% adherent slough surrounded by ~10% red non granulating tissue and ~10%purple/black soft tissue with minimal purulent drainage coming from underneath slough (opening allowed for measurement of depth, however unable to visualize). Periwound is non blanching erythema. Wounds were cleansed with NS and gauze. No induration and no odors were present at this time with either wound. A new foam adhesive was placed over both wounds for absorption of purulent drainage until orders obtained for daily packing. Patient was positioned to his right side to relieve pressure with 2 staggered ultrasorbs underneath him for moisture before leaving patient room. Anat Roman [facility] Nov 21, 2016 14:49
[2016-11-21] MEDS: VANCOMYCIN INJ 1,000 MG in SODIUM CHLOR 0.9% 250 ML INJ 250 ML IV SCH (17:49)
[2016-11-21] MEDS: ATORVASTATIN 80 MG TAB PO SCH (21:26)
[2016-11-22] VITALS (28 sets, daily range): BP systolic 94–146; BP diastolic 57–78; PULSE 68–144; RESP 18–20; TEMP 97.8–98.7; O2SAT 95–98
[2016-11-22 03:22] LABS: BICARBONATE 24.6 MEQ/L (21.0-32.0); POTASSIUM 4.2 MEQ/L (3.5-5.1)
[2016-11-22 04:04] LABS: AUTOMATED NEUTROPHIL # 8.5 TH/MM3 (1.8-7.7); BASOPHIL # 0.1 TH/MM3 (0-0.2); BASOPHIL % 0.6 % (0.0-2.0); EOSINOPHIL # 0.3 TH/MM3 (0-0.4); EOSINOPHIL % 2.5 % (0.0-4.0); HEMATOCRIT 33.8 % (39.0-51.0); HEMO FLAGS DIFF FINAL; LYMPH % 11.1 % (9.0-44.0); LYMPHOCYTE # 1.2 TH/MM3 (1.0-4.8); MEAN CELL VOLUME 78.6 FL (80.0-100.0); MEAN CORPUSCULAR HEMOGLOBIN 26.1 PG (27.0-34.0); MEAN CORPUSCULAR HGB CONC 33.2 % (32.0-36.0); NEUT % 78.8 % (16.0-70.0); PLATELET COUNT 272 TH/MM3 (150-450); RED CELL DISTRIBUTION WIDTH 15.9 % (11.6-17.2); WHITE BLOOD COUNT 10.8 TH/MM3 (4.0-11.0)
[2016-11-22] MEDS ORDERED: AMIODARONE 200 MG TAB PO ONE (04:15)
[2016-11-22] MEDS ORDERED: ENOXAPARIN SODIUM 60 MG/0.6 ML SYRINGE SQ ONE (04:30)
[2016-11-22] MEDS ORDERED: EPINEPHrine HCL (1:10,000) 1 MG/10 ML SYRINGE ONE (05:14)
[2016-11-22] MEDS ORDERED: ATROPINE SULFATE 1 MG/10 ML SYRINGE ONE (05:14)
[2016-11-22] MEDS ORDERED: IOHEXOL 350 MG/ML 10 ML VIAL (for RAD DIAG) IV ONE (05:33)
--- NOTE | 2016-11-22 05:47 | RADRPT ---
EXAM DATE/TIME: 11/22/2016 05:21 [place] COMPARISON: No previous studies available for comparison. INDICATIONS : Shortness of breath. Tachycardia. IV CONTRAST: 65 cc Omnipaque 350 (iohexol) IV RADIATION DOSE: 7.35 CTDIvol (mGy) MEDICAL HISTORY : Myocardial infarction. Hypertension. Chronic obstructive pulmonary disease. SURGICAL HISTORY : Coronary stents ENCOUNTER: Subsequent ACUITY: 2 days PAIN SCALE: 0/10 LOCATION: chest TECHNIQUE: Volumetric scanning of the chest was performed using a pulmonary embolism protocol MIP images were re constructed. Using automated exposure control and adjustment of the mA and/or kV according to patien t size, radiation dose was kept as low as reasonably achievable to obtain optimal diagnostic quality images. DICOM format image data is available electronically for review and comparison. Follow-up recommendations for incidentally detected pulmonary nodules are based at a minimum on nodul e size and patient risk factors according to Fleischner Society Guidelines. FINDINGS: PULMONARY ARTERIES: No filling defects are seen in the pulmonary arteries through the segmental level. LUNGS: There are bilateral areas of consolidation particularly in the left lower lobe. No concerning pulmon dorian nodule is visualized. PLEURAE: There is no pleural thickening. Bilateral pleural effusions left greater than right. MEDIASTINUM: There is good visualization of the great vessels of the middle mediastinum. No evidence of mediastin al or hilar adenopathy/mass. MUSCULOSKELETAL: Within normal limits for patient age. MISCELLANEOUS: The visualized upper abdominal organs demonstrate no acute abnormality. CONCLUSION: No evidence of pulmonary embolism. Bilateral pleural effusions left greater then right. Extensive con solidation left lower lobe. Eleazar Heller MD on November 22, 2016 at 5:44 Board Certified Radiologist. This report was verified electronically.
[2016-11-22] MEDS: MIDODRINE 5 MG TAB PO SCH ×3 (06:12→15:38)
[2016-11-22] MEDS: predniSONE 5 MG TAB PO SCH (08:37)
[2016-11-22] MEDS: ASPIRIN EC 81 MG TABEC PO SCH (08:37)
[2016-11-22] MEDS: AMANTADINE HCL 100 MG CAP PO SCH (08:38)
[2016-11-22] MEDS: ISOSORBIDE MONONITRATE 30 MG TAB PO SCH (08:38)
[2016-11-22] MEDS: SODIUM CHLORIDE 0.9% FLUSH 10 ML FLUSH IV FLUSH SCH ×2 (08:38→22:59)
--- NOTE | 2016-11-22 08:39 | PD.CONS ---
HPI Consult Requested By Reason for Consult Atrial fibrillation Primary Care Physician [facility] History of Present Illness The chart was reviewed and patient spoken with. [facility]. He has a history of an CA and 2 stents in the distant past. He notes chronic moderate dyspnea on exertion but no PND, orthopnea, pedal edema or chest pain. He is in the local [facility] custodial. He has had a recent, chronic sacral decubitus. The patient notes chronic imbalance and uses a scooter. He has multiple sclerosis. He has been mildly lightheaded on and off over the last 2 weeks with fluttering in his chest and was [place]. EKG has shown sinus rhythm with right bundle branch block and left anterior fascicular block and he has gone into atrial fibrillation with rapid response. He has received a single dose of 200 mg of amiodarone but nothing else has been done. His blood pressure has been borderline. Review of Systems Consitutional: COMPLAINS OF: Fatigue, Weight loss Eyes: COMPLAINS OF: Change in vision HEENT: COMPLAINS OF: Lightheadedness, Change in hearing Respiratory: COMPLAINS OF: Shortness of breath, DENIES: Snoring, Sputum production Cardiovascular: COMPLAINS OF: Palpitations Genitourinary: COMPLAINS OF: Urinary incontinence Neurologic: COMPLAINS OF: Poor Balance, DENIES: Tingling or numbness Musculoskeletal: COMPLAINS OF: Joint pain, Limited range of motion Psychiatric: DENIES: Anxiety, Depression Hematologic: COMPLAINS OF: Bruising tendencies Past Family Social History Allergies: Coded Allergies: Oxacillin (Verified Allergy, Unknown, 11/19/16) Past Medical History Hypertension Hyperlipidemia Cardiac as above Multiple sclerosis Incontinence Past Surgical History None Reported Medications Reported Meds & Active Scripts Active Reported Losartan (Losartan Potassium) 25 Mg Tab 12.5 Mg PO DAILY Baclofen 10 Mg Tab 10 Mg PO TID Multi-Vitamin Daily (Multiple Vitamin) 1 Tab Tab 1 Tab PO DAILY Diclofenac Topical 1% Gel 1 Applic TOPICAL BID Amantadine (Amantadine HCl) 100 Mg Tab 200 Mg PO DAILY IN THE PM Amantadine (Amantadine HCl) 100 Mg Tab 100 Mg PO DAILY IN THE AM Alfuzosin HCl ER (Alfuzosin HCl) 10 Mg Tab 10 Mg PO DAILY Omeprazole 20 Mg Tab 40 Mg PO BID Take 30 minutes before meals twice a day Aspirin Adult Low Strength (Aspirin) 81 Mg Tabdr 81 Mg PO DAILY [place] Opth Drops (Ketotifen Opth Drops) 0.025% Drops 1 Drop EACH EYE BID Refresh Plus Unit-Dose 0.5% Opth (Carboxymethylcellulose Sodium 0.5% Opth) 0.5% Drops 1 Drop EACH EYE QID PRN Fexofenadine (Fexofenadine HCl) 180 Mg Tab 180 Mg PO DAILY Ensure Plus (Nutritional Supplements) 1 Liq Liq 1 Can PO TID Vitamin D3 (Cholecalciferol) 1,000 Unit Tab 2,000 Units PO DAILY IN THE PM Vitamin D3 (Cholecalciferol) 1,000 Unit Tab 1,000 Units PO DAILY IN THE AM Prednisone 5 Mg Tab 5 Mg PO DAILY Lasix (Furosemide) 20 Mg Tab 40 Mg PO MOWEFR Take 2 tablets (40mg) daily on Thursday,Thursday and Thursday Lasix (Furosemide) 20 Mg Tab 20 Mg PO SUTUTHSA Take 1 tablet (20mg) daily on Thursday,Thursday, and Thursday Potassium Chloride ER (Potassium Chloride) 20 Meq Tab 20 Meq PO DAILY Isosorbide Mononitrate ER (Isosorbide Mononitrate) 30 Mg Marla 30 Mg PO DAILY Coreg (Carvedilol) 6.25 Mg Tab 6.25 Mg PO BID Atorvastatin (Atorvastatin Calcium) 80 Mg Tab 80 Mg PO HS Active Ordered Medications Current Medications Medications (Trade) Dose Ordered Sig/Karena Route Start Time Stop Time Status Last Admin (NS Flush) 2 ml UNSCH PRN IV FLUSH 11/19/16 13:15 (NS Flush) 2 ml BID IV FLUSH 11/19/16 21:00 11/21/16 21:27 (Tylenol) 650 mg Q4H PRN PO 11/19/16 13:15 (Zofran Inj) 4 mg Q6H PRN IVP 11/19/16 13:15 (Tylenol) 650 mg Q6H PRN PO 11/19/16 13:15 (Narcan Inj) 0.4 mg UNSCH PRN IV 11/19/16 13:15 (Symmetrel) 100 mg DAILY PO 11/20/16 09:00 11/21/16 08:57 (Ecotrin Ec) 81 mg DAILY PO 11/20/16 09:00 11/21/16 08:35 (Lipitor) 80 mg HS PO 11/19/16 21:00 11/21/16 21:26 (Imdur) 30 mg DAILY PO 11/20/16 09:00 11/21/16 08:35 (Deltasone) 5 mg DAILY PO 11/20/16 09:00 11/21/16 08:35 Midodrine 5 mg 5 mg TID@,, PO 11/20/16 08:45 11/22/16 06:12 Pharmacy Profile Note 0 ml @ 0 mls/hr UNSCH OTHER 11/20/16 14:00 (Vancomycin Inj/ NS 250 ml Inj) 250 ml @ 250 mls/hr Q24H IV 11/21/16 15:00 11/21/16 17:49 Miscellaneous Information SPECIFIC LAB TO BE DRAWN:VANCOMYCIN TROUGH DATE TO... ONCE ONCE .XX 11/23/16 14:45 11/23/16 14:46 Cefepime HCl 2000 mg/Sodium Chloride 100 ml @ 200 mls/hr Q8H IV 11/22/16 09:00 Amiodarone HCl 150 mg/Dextrose 100 ml @ 600 mls/hr NOW ONCE IV 11/22/16 09:00 11/22/16 09:09 (Cordarone Inj/ D5W ([place]) Inj) 250 ml @ 0 mls/hr CONTINUOUS IV 11/22/16 09:00 Family History Noncontributory Social History The patient is and also has a girlfriend locally. He is a former smoker and drinker. Physical Exam Vital Signs Vital Signs Date Time Temp Pulse Resp B/P Pulse Ox O2 Delivery O2 Flow Rate FiO2 11/22/16 07:45 137 11/22/16 07:00 97.8 128 20 94/67 95 11/22/16 06:00 142 11/22/16 05:00 138 11/22/16 04:00 144 11/22/16 04:00 136 20 101/64 96 11/22/16 03:08 98.7 140 20 107/57 95 11/22/16 03:00 133 11/22/16 03:00 129 20 98/67 97 11/22/16 02:00 134 11/22/16 01:00 124 11/22/16 00:00 124 11/21/16 23:00 92 11/21/16 23:00 98.1 92 20 108/66 97 11/21/16 22:00 86 11/21/16 21:00 96 11/21/16 20:00 94 11/21/16 19:30 98.5 94 20 98/66 94 Manual Cuff/Palpation 11/21/16 19:00 91 11/21/16 18:00 98 11/21/16 17:00 92 11/21/16 16:00 84 11/21/16 15:15 97.9 89 18 99/63 98 11/21/16 15:00 94 11/21/16 14:00 90 11/21/16 13:01 86 11/21/16 12:00 90 11/21/16 11:15 98.9 93 18 91/56 94 11/21/16 11:00 88 11/21/16 10:00 94 11/21/16 09:01 96 Physical Exam CONSTITUTIONAL: A cachectic patient in no apparent distress. EYES: Conjunctiva normal. Sclera nonicteric. Eyelids normal. No xanthelasma. HEENT: Oral mucosa normal without pallor or cyanosis. NECK: JVD less than or equal to 5 cm of water. RESPIRATORY: Breathing is unlabored without accessory muscle use. Normal breath sounds. No wheezes, rales or rubs present. CARDIOVASCULAR: Normal point of maximal impulse. No cardiac thrill present. Irregular rate and rhythm. No murmurs, gallops, rubs or clicks present. PULSES: Carotid arteries: Normal pulses bilaterally without bruits. Palmar arteries: Radial pulses 2+ bilaterally Abdominal aorta: Aortic pulses normal without bruits or enlargement. Femoral arteries: 2+ bilaterally. No bruits present. Pedal pulses: Trace bilaterally PERIPHERAL CIRCULATION: No cyanosis, clubbing, edema or varicosities present. GASTROINTESTINAL: Normal bowel sounds. Nontender without rigidity or guarding. No masses present. No hepatomegaly. Liver is nontender to palpation and spleen is nonpalpable. Digital rectal exam-not indicated for cardiovascular exam. MUSCULOSKELETAL: No kyphosis or scoliosis present. The patient is not ambulated. Able to undergo rehabilitation. SKIN: Skin turgor is normal. No rashes. NEUROLOGIC: Grossly oriented to person, place and time. Normal mood and appropriate affect. Laboratory [id number]% ejection fraction with moderate to severe MR Laboratory Tests Test 11/22/16 02:50 White Blood Count 10.8 Red Blood Count 4.30 Hemoglobin 11.2 Hematocrit 33.8 Mean Corpuscular Volume 78.6 Mean Corpuscular Hemoglobin 26.1 Mean Corpuscular Hemoglobin 33.2 Concent Red Cell Distribution Width 15.9 Platelet Count 272 Mean Platelet Volume 9.7 Neutrophils (%) (Auto) 78.8 Lymphocytes (%) (Auto) 11.1 Monocytes (%) (Auto) 7.0 Eosinophils (%) (Auto) 2.5 Basophils (%) (Auto) 0.6 Neutrophils # (Auto) 8.5 Lymphocytes # (Auto) 1.2 Monocytes # (Auto) 0.7 Eosinophils # (Auto) 0.3 Basophils # (Auto) 0.1 CBC Comment DIFF FINAL Differential Comment Sodium Level 141 Potassium Level 4.2 Chloride Level 106 Carbon Dioxide Level 24.6 Anion Gap 10 Blood Urea Nitrogen 34 Creatinine 1.16 Estimat Glomerular Filtration 62 Rate Random Glucose 114 Calcium Level 8.4 Magnesium Level 2.0 Date/Time Procedure Status Source Growth 11/21/16 04:49 Aerobic Blood Culture Received Blood Peripheral Pending 11/21/16 04:49 Anaerobic Blood Culture Received Blood Peripheral Pending 11/20/16 13:50 Urine Culture - Final Complete Urine Clean Catch <10,000 CFU/ML GRAM POSITIVE KATRINA 11/20/16 13:45 Gram Stain - Final Resulted Wound Buttock 11/20/16 13:45 Wound Culture - Preliminary Resulted S. Aureus Mrsa Gram Negative Sharath Result Diagram: 11/22/16 0250 11/22/16 0250 Imaging Last [address] Angiography 11/22/16 0000 Signed Impressions: Service Date/Time: Tuesday, November 22, 2016 05:21 - CONCLUSION: No evidence of pulmonary embolism. Bilateral pleural effusions left greater then right. Extensive consolidation left lower lobe. Eleazar Heller MD Assessment and Plan Assessment and Plan Problems: Atrial fibrillation with rapid response Bifascicular block Ischemic cardiomyopathy Possible pneumonia MRSA wound Hypertension Hyperlipidemia Multiple sclerosis Recent bleeding from decubitus Cachexia Recommendations: The patient is in overall very poor condition and is a custodial resident. We would manage him medically. My recommendations include the following: His blood pressure is borderline low. We would certainly want to keep him on his ARB if possible along with his baseline diuretic. I will start him on amiodarone drip. Hopefully this will slow his rate, converted him to sinus rhythm and maintain it there. If his rate is not slow with this we will consider Cardizem drip. Hold beta blockers. I'm not sure why the patient is on midodrine but this is a poor choice with his cardiomyopathy. DVT prophylaxis and antibiotics which I will leave to the primary service. He is presently a poor candidate for full anticoagulation Pete Bangura MD Nov 22, 2016 08:39
[2016-11-22] MEDS: AMIODARONE INJ 450 MG in D5W (EXCEL BAG) 241 ML IV SCH ×2 (08:42→17:18)
--- NOTE | 2016-11-22 08:54 | HHI.PR ---
Subjective Remarks Follow up shortness of breath 11/20/16-patient seen and examined; denies any significant shortness of breath or chest pain. BP low but patient is asymptomatic; HR slightly up.Afebrile 11/21/16-patient seen and examined, he was started yesterday on IV antibiotic secondary to left lower inner buttock wound and is currently afebrile. Patient was treated with amiodarone 200 mg 1 due to A. fib with RVR and patient currently rate control. Denies any chest pain or shortness of breath. 11/22/16-patient seen and examined,denies any heart palpitation; afebrile. HR still up however BP low Objective Vitals Vital Signs Date Time Temp Pulse Resp B/P Pulse Ox O2 Delivery O2 Flow Rate FiO2 11/22/16 07:45 137 11/22/16 07:00 97.8 128 20 94/67 95 11/22/16 06:00 142 11/22/16 05:00 138 11/22/16 04:00 144 11/22/16 04:00 136 20 101/64 96 11/22/16 03:08 98.7 140 20 107/57 95 11/22/16 03:00 133 11/22/16 03:00 129 20 98/67 97 11/22/16 02:00 134 11/22/16 01:00 124 11/22/16 00:00 124 11/21/16 23:00 92 11/21/16 23:00 98.1 92 20 108/66 97 11/21/16 22:00 86 11/21/16 21:00 96 11/21/16 20:00 94 11/21/16 19:30 98.5 94 20 98/66 94 Manual Cuff/Palpation 11/21/16 19:00 91 11/21/16 18:00 98 11/21/16 17:00 92 11/21/16 16:00 84 11/21/16 15:15 97.9 89 18 99/63 98 11/21/16 15:00 94 11/21/16 14:00 90 11/21/16 13:01 86 11/21/16 12:00 90 11/21/16 11:15 98.9 93 18 91/56 94 11/21/16 11:00 88 11/21/16 10:00 94 11/21/16 09:01 96 I/O 11/21/16 11/21/16 11/21/16 11/22/16 11/22/16 11/22/16 07:00 15:00 23:00 07:00 15:00 23:00 Intake Total 200 ml 624 ml 480 ml Output Total 100 ml 375 ml 100 ml Balance 100 ml 249 ml 380 ml Intake Oral 200 ml 540 ml 480 ml IV Total 0 ml 84 ml 0 ml Output Urine Total 100 ml 375 ml 100 ml Emesis 0 ml 0 ml # Voids 3 2 3 # Bowel Movements 0 0 1 Result Diagram: 11/22/16 0250 11/22/16 [address] Angiography 11/22/16 0000 Signed Impressions: Service Date/Time: Tuesday, November 22, 2016 05:21 - CONCLUSION: No evidence of pulmonary embolism. Bilateral pleural effusions left greater then right. Extensive consolidation left lower lobe. Eleazar Heller MD Chest X-Ray 11/19/16 1007 Signed Impressions: Service Date/Time: Saturday, November 19, 2016 10:29 - CONCLUSION: 1. No acute cardiopulmonary disease. Khadar Thakkar MD Lung Scan-VQ Nuclear Medicine 11/19/16 0000 Signed Impressions: Service Date/Time: Saturday, November 19, 2016 12:46 - CONCLUSION: Low probability scan for pulmonary embolism. Rod Hdez MD Objective Remarks GENERAL: NAD SKIN: Warm and dry. HEAD: Normocephalic. EYES: No scleral icterus. No injection or drainage. NECK: Supple, trachea midline. No JVD or lymphadenopathy. CARDIOVASCULAR: Regular rate and rhythm without murmurs, gallops, or rubs. RESPIRATORY: Breath sounds decrease in Left lung bilaterally. No accessory muscle use. GASTROINTESTINAL: Abdomen soft, non-tender, nondistended. MUSCULOSKELETAL: No cyanosis, or edema. BACK: Nontender without obvious deformity. No CVA tenderness. Dressing over left lower inner buttock wound A/P Problem List: (1) Atypical chest pain ICD Code: R07.89 Status: Acute (2) Acute on chronic systolic congestive heart failure ICD Code: I50.23 Status: Acute (3) Acute renal failure ICD Code: N17.9 Status: Acute (4) Hypotension ICD Code: I95.9 Status: Acute (5) Infected wound ICD Code: T14.8 Status: Acute (6) Atrial fibrillation with RVR ICD Code: I48.91 Status: Acute Assessment and Plan 71-year-old man with Left lower inner buttock wound-MRSA Currently on IV vancomycin Wound care nurse consult appreciate Consult General surgery for eval for possible I&D Consult ID CTA with finding of Extensive consolidation left lower lobe Start Rocephin IV A. fib with RVR s/p amiodarone 200 mg by mouth 1 on 11/20/16 Start Amiodarone drip per Cardiology Beta abilio contraindicated secondary to hypotension CTA negative for PE Atypical chest pain ACS ruled out per protocol with serial cardiac enzyme and EKGs Nitroglycerin contraindicated secondary to hypotension VQ scan with low probability for PE Continue aspirin and statin, however hold beta abilio secondary to hypotension 2-D echo 20-25% however secondary to hypotension ESTELA inhibitor is contraindicated CTA with finding of B pleural effusion Systolic CHF Chest x-ray without any cardio pulmonary disease Due to hypotension with hold Lasix Imdur with holding parameters Hypotension Increase Midodrine to 10mg TID Hold all oral anti hypertensive meds Hyperlipidemia continue statin DVT prophylaxis: Bilateral SCDs Liang Shaikh MD Nov 22, 2016 08:54
[2016-11-22] MEDS ORDERED: AMIODARONE 150 MG/D5W 97 ML BOLUS 10 MINUTES IV ONE ×2 (09:00)
[2016-11-22] MEDS ORDERED: CEFEPIME INJ 2,000 MG in SODIUM CHLORIDE 0.9% INJ 100 ML IV SCH (09:00)
[2016-11-22] MEDS ORDERED: DILTIAZEM HCL 25 MG/5 ML VIAL IV PUSH PRN (12:00)
[2016-11-22] MEDS ORDERED: DILTIAZEM 125 MG/NS 100 ML IV SCH ×2 (12:00)
[2016-11-22] MEDS: VANCOMYCIN INJ 1,000 MG in SODIUM CHLOR 0.9% 250 ML INJ 250 ML IV SCH (15:38)
--- NOTE | 2016-11-22 16:12 | PD.ID.CON ---
History of Present Illness Service ID Consult Requested By Reason for Consult Evaluation and Mment of Pneumonia and Infected sacral decub ulcer. Primary Care Physician [facility] Diagnoses: History of Present Illness 71-year-old male with PMHx significant for Multiple sclerosis, reports being bed bound most of the times, sacral decub present on admission. He reports he developed a sacral decub while at the long term and a specialty bed was ordered for him. He also has h/o CAD, ? angioplasty, CHF. [facility] evaluation of an acute onset of chest pressure as well as hypotension while patient was awaiting for his appointment today. Patient states around 7:30 AM he experience chest pressure rated 7/10 in intensity associated with lightheadedness, dizziness along with shortness of breath. EMS was called, and patient was noted to have low BP for which he was given [address] angiogram negative for PE but bilateral consolidation noted. Pt on empiric antibiotics for PNA and Sacral decub ulcer site infection with MRSA and ESBL. ID consulted for the same. Review of Systems ROS Limitations: Poor Historian Constitutional: DENIES: Diaphoretic episodes, Fatigue, Fever, Weight gain, Weight loss, Chills, Dizziness, Change in appetite, Night Sweats Endocrine: DENIES: Heat/cold intolerance, Polydipsia, Polyuria, Polyphagia Eyes: DENIES: Blurred vision, Diplopia, Eye inflammation, Eye pain, Vision loss , Photosensitivity, Double Vision Ears, nose, mouth, throat: DENIES: Tinnitus, Hearing loss, Vertigo, Nasal discharge, Oral lesions, Throat pain, Hoarseness, Ear Pain, Running Nose, Epistaxis, Sinus Pain, Toothache, Odynophagia Respiratory: COMPLAINS OF: Shortness of breath, DENIES: Apneas, Cough, Snoring , Wheezing, Hemoptysis, Sputum production Cardiovascular: COMPLAINS OF: Chest pain, Lower Extremity Edema, DENIES: Palpitations, Syncope, Dyspnea on Exertion, PND, Orthopnea, Claudication Gastrointestinal: DENIES: Abdominal pain, Black stools, Bloody stools, Constipation, Diarrhea, Nausea, Vomiting, Difficulty Swallowing, Anorexia Genitourinary: DENIES: Sexual dysfunction, Urinary frequency, Urinary incontinence, Urgency, Hematuria, Dysuria, Nocturia, Penile Discharge, Testicular Pain, Testicular Swelling Musculoskeletal: COMPLAINS OF: Back pain, DENIES: Joint pain, Muscle aches, Stiffness, Joint Swelling, Neck pain Integumentary: DENIES: Abnormal pigmentation, Nail changes, Pruritus, Rash Hematologic/lymphatic: DENIES: Bruising, Lymphadenopathy Immunologic/allergic: DENIES: Eczema, Urticaria Neurologic: COMPLAINS OF: Poor Balance Psychiatric: DENIES: Anxiety, Confusion, Mood changes, Depression, Hallucinations, Agitation, Suicidal Ideation, Homicidal Ideation, Delusions Past Family Social History Allergies: Coded Allergies: Oxacillin (Verified Allergy, Unknown, 11/19/16) Past Medical History COPD Myocardial Infarction Atrial fibrillation with rapid response Bifascicular block Ischemic cardiomyopathy Hypertension Hyperlipidemia Multiple sclerosis Recent bleeding from decubitus Cachexia Past Surgical History Coronary Stent: Yes (X2) Reported Medications Reported Meds & Active Scripts Active Reported Losartan (Losartan Potassium) 25 Mg Tab 12.5 Mg PO DAILY Baclofen 10 Mg Tab 10 Mg PO TID Multi-Vitamin Daily (Multiple Vitamin) 1 Tab Tab 1 Tab PO DAILY Diclofenac Topical 1% Gel 1 Applic TOPICAL BID Amantadine (Amantadine HCl) 100 Mg Tab 200 Mg PO DAILY IN THE PM Amantadine (Amantadine HCl) 100 Mg Tab 100 Mg PO DAILY IN THE AM Alfuzosin HCl ER (Alfuzosin HCl) 10 Mg Tab 10 Mg PO DAILY Omeprazole 20 Mg Tab 40 Mg PO BID Take 30 minutes before meals twice a day Aspirin Adult Low Strength (Aspirin) 81 Mg Tabdr 81 Mg PO DAILY [place] Opth Drops (Ketotifen Opth Drops) 0.025% Drops 1 Drop EACH EYE BID Refresh Plus Unit-Dose 0.5% Opth (Carboxymethylcellulose Sodium 0.5% Opth) 0.5% Drops 1 Drop EACH EYE QID PRN Fexofenadine (Fexofenadine HCl) 180 Mg Tab 180 Mg PO DAILY Ensure Plus (Nutritional Supplements) 1 Liq Liq 1 Can PO TID Vitamin D3 (Cholecalciferol) 1,000 Unit Tab 2,000 Units PO DAILY IN THE PM Vitamin D3 (Cholecalciferol) 1,000 Unit Tab 1,000 Units PO DAILY IN THE AM Prednisone 5 Mg Tab 5 Mg PO DAILY Lasix (Furosemide) 20 Mg Tab 40 Mg PO MOWEFR Take 2 tablets (40mg) daily on Thursday,Thursday and Thursday Lasix (Furosemide) 20 Mg Tab 20 Mg PO SUTUTHSA Take 1 tablet (20mg) daily on Thursday,Thursday, and Thursday Potassium Chloride ER (Potassium Chloride) 20 Meq Tab 20 Meq PO DAILY Isosorbide Mononitrate ER (Isosorbide Mononitrate) 30 Mg Marla 30 Mg PO DAILY Coreg (Carvedilol) 6.25 Mg Tab 6.25 Mg PO BID Atorvastatin (Atorvastatin Calcium) 80 Mg Tab 80 Mg PO HS Active Ordered Medications Current Medications Medications (Trade) Dose Ordered Sig/Karena Route Start Time Stop Time Status Last Admin (NS Flush) 2 ml UNSCH PRN IV FLUSH 11/19/16 13:15 (NS Flush) 2 ml BID IV FLUSH 11/19/16 21:00 11/22/16 08:38 (Tylenol) 650 mg Q4H PRN PO 11/19/16 13:15 (Zofran Inj) 4 mg Q6H PRN IVP 11/19/16 13:15 (Tylenol) 650 mg Q6H PRN PO 11/19/16 13:15 (Narcan Inj) 0.4 mg UNSCH PRN IV 11/19/16 13:15 (Symmetrel) 100 mg DAILY PO 11/20/16 09:00 11/22/16 08:38 (Ecotrin Ec) 81 mg DAILY PO 11/20/16 09:00 11/22/16 08:37 (Lipitor) 80 mg HS PO 11/19/16 21:00 11/21/16 21:26 (Imdur) 30 mg DAILY PO 11/20/16 09:00 11/22/16 08:38 Prednisone 5 mg 5 mg DAILY PO 11/20/16 09:00 11/22/16 08:37 Pharmacy Profile Note 0 ml @ 0 mls/hr UNSCH OTHER 11/20/16 14:00 (Vancomycin Inj/ NS 250 ml Inj) 250 ml @ 250 mls/hr Q24H IV 11/21/16 15:00 11/22/16 15:38 Miscellaneous Information SPECIFIC LAB TO BE DRAWN:VANCOMYCIN TROUGH DATE TO... ONCE ONCE .XX 11/23/16 14:45 11/23/16 14:46 (Cordarone Inj/ D5W (Vici) Inj) 250 ml @ 0 mls/hr CONTINUOUS IV 11/22/16 09:00 11/22/16 17:18 (Proamatine) 10 mg TID@07,12,17 PO 11/22/16 12:00 11/22/16 15:38 Diltiazem HCl 15 mg 15 mg BOLUS PRN IV PUSH 11/22/16 12:00 11/23/16 11:59 11/22/16 12:28 (Cardizem Inj/NS Inj) 125 ml @ 0 mls/hr TITRATE IV 11/22/16 12:00 11/22/16 12:28 Levofloxacin 500 mg 500 mg DAILY PO 11/22/16 16:00 11/22/16 17:21 (Merrem Inj/NS Inj) 100 ml @ 200 mls/hr Q8H IV 11/22/16 17:00 11/22/16 17:18 Family History Mother had CVA, CAD and myocardial infarction Social History Social History Alcohol Use: No Tobacco Use: No (QUIT 3 YEARS AGO ) Substance Use: No Physical Exam Vital Signs Vital Signs Date Time Temp Pulse Resp B/P Pulse Ox O2 Delivery O2 Flow Rate FiO2 11/22/16 15:51 97.8 80 18 104/73 96 11/22/16 15:04 80 11/22/16 14:07 86 11/22/16 13:06 128 11/22/16 12:53 128 11/22/16 11:15 97.8 112 20 94/74 96 11/22/16 11:02 131 11/22/16 10:21 134 11/22/16 09:00 138 11/22/16 08:00 136 11/22/16 07:45 137 11/22/16 07:00 97.8 128 20 94/67 95 11/22/16 06:00 142 11/22/16 05:00 138 11/22/16 04:00 144 11/22/16 04:00 136 20 101/64 96 11/22/16 03:08 98.7 140 20 107/57 95 11/22/16 03:00 133 11/22/16 03:00 129 20 98/67 97 11/22/16 02:00 134 11/22/16 01:00 124 11/22/16 00:00 124 11/21/16 23:00 92 11/21/16 23:00 98.1 92 20 108/66 97 11/21/16 22:00 86 11/21/16 21:00 96 11/21/16 20:00 94 11/21/16 19:30 98.5 94 20 98/66 94 Manual Cuff/Palpation 11/21/16 19:00 91 11/21/16 18:00 98 11/21/16 17:00 92 Physical Exam GENERAL: Thin built, cachectic appearing male, in no apparent distress. SKIN: No rashes, ecchymoses or lesions. Cool and dry. HEAD: Atraumatic. Normocephalic. No temporal or scalp tenderness. EYES: Pupils equal round and reactive. Extraocular motions intact. No scleral icterus. No injection or drainage. ENT: Nose without bleeding, purulent drainage or septal hematoma. Throat without erythema, tonsillar hypertrophy or exudate. Uvula midline. Airway patent. NECK: Trachea midline. Supple, nontender, no meningeal signs. CARDIOVASCULAR: HS audible. RESPIRATORY: Clear to auscultation. Breath sounds equal bilaterally. No wheezes , rales, or rhonchi. GASTROINTESTINAL: Abdomen soft, non-tender, nondistended. MUSCULOSKELETAL: Extremities without clubbing, cyanosis, or edema. NEUROLOGICAL: Awake and alert. Grossly non focal. Sacrum area with an area of ulceration, with foul smelling, yellow white dirty looking active drainage. No expression some more would come out. Tenderness with surrounding erythema noted. Psych: cooperative IV line sites with no e.o infection. Laboratory Laboratory Tests Test 11/22/16 02:50 White Blood Count 10.8 Red Blood Count 4.30 Hemoglobin 11.2 Hematocrit 33.8 Mean Corpuscular Volume 78.6 Mean Corpuscular Hemoglobin 26.1 Mean Corpuscular Hemoglobin 33.2 Concent Red Cell Distribution Width 15.9 Platelet Count 272 Mean Platelet Volume 9.7 Neutrophils (%) (Auto) 78.8 Lymphocytes (%) (Auto) 11.1 Monocytes (%) (Auto) 7.0 Eosinophils (%) (Auto) 2.5 Basophils (%) (Auto) 0.6 Neutrophils # (Auto) 8.5 Lymphocytes # (Auto) 1.2 Monocytes # (Auto) 0.7 Eosinophils # (Auto) 0.3 Basophils # (Auto) 0.1 CBC Comment DIFF FINAL Differential Comment Sodium Level 141 Potassium Level 4.2 Chloride Level 106 Carbon Dioxide Level 24.6 Anion Gap 10 Blood Urea Nitrogen 34 Creatinine 1.16 Estimat Glomerular Filtration 62 Rate Random Glucose 114 Calcium Level 8.4 Magnesium Level 2.0 Date/Time Procedure Status Source Growth 11/21/16 04:49 Aerobic Blood Culture - Preliminary Resulted Blood Peripheral NO GROWTH IN 1 DAY 11/21/16 04:49 Anaerobic Blood Culture - Preliminary Resulted Blood Peripheral NO GROWTH IN 1 DAY 11/20/16 13:50 Urine Culture - Final Complete Urine Clean Catch <10,000 CFU/ML GRAM POSITIVE KATRINA 11/20/16 13:45 Gram Stain - Final Complete Wound Buttock 11/20/16 13:45 Wound Culture - Final Complete S. Aureus Mrsa Escherichia Coli Esbl Positive Result Diagram: 11/22/16 0250 11/22/16 [address] Angiography 11/22/16 0000 Signed Impressions: Service Date/Time: Tuesday, November 22, 2016 05:21 - CONCLUSION: No evidence of pulmonary embolism. Bilateral pleural effusions left greater then right. Extensive consolidation left lower lobe. Eleazar Heller MD Chest X-Ray 11/19/16 1007 Signed Impressions: Service Date/Time: Saturday, November 19, 2016 10:29 - CONCLUSION: 1. No acute cardiopulmonary disease. Khadar Thakkar MD Lung Scan-V Nuclear Medicine 11/19/16 0000 Signed Impressions: Service Date/Time: Saturday, November 19, 2016 12:46 - CONCLUSION: Low probability scan for pulmonary embolism. Rod Hdez MD Assessment and Plan Assessment and Plan Possible Sepsis present on admission (leucocytosis, hypotension). Patient is on chronic steroids and immunecompromised and may not manifest all signs of infection. Pneumonia present on admission ([facility], multiple admissions to hospital for PNA per patient) Infected Sacral Decub ulcer stage 2-3 with possible abscess and surrounding cellulitis. MRSA and ESBL. Multiple Sclerosis on chronic steroids. Afib on admission CAD s.p stents and cardiac cath Recs Continue Vanco IV (target 10-15) Start Levaquin for atypical coverage. Urine legionella Ag Urine Strep pneumo Ag Start Meropenem (ASP: ESBL infected sacral wound with cellulitis) CT A/P with contrast (re: assess the sacral area for deeper infection such as abscess pockets or osteomyelitis) juanjosew pt and RN. Cathy Pratt MD Nov 22, 2016 16:12
[2016-11-22] MEDS ORDERED: MISCELLANEOUS PHARMACY INFORMATION XX PRN (16:15)
[2016-11-22] MEDS ORDERED: ASP: Path resistant to other antimicrobials, culture proven PRN (16:15)
--- NOTE | 2016-11-22 16:27 | EKG ---
Date Performed: 11/22/2016 Time Performed: 03:59:18 PTAGE: 71 years EKG: Atrial fibrillation with rapid ventricular response with PVC(s) or aberrant ventricular con duction. Left axis deviation RBBB with left anterior fascicular block Anteroseptal infarct - age unde termined Lateral T wave changes are nonspecific Abnormal ECG PREVIOUS TRACING : 11/20/2016 09.16 Since previous tracing, Sinus rhythm has been replaced with atrial fibrillation with a rapid ventricular response. The PVCs are new. Clin ical correlation is recommended. DOCTOR: Jasper Jaeger Interpretating Date/Time 11/22/2016 16:27:05
[2016-11-22] MEDS ORDERED: DIATRIZOATE MEGLUM/DIATRIZOATE SOD 9 ML CUP PO ONE (17:00)
[2016-11-22] MEDS: MEROPENEM INJ 500 MG in SODIUM CHLORIDE 0.9% INJ 100 ML IV SCH (17:18)
[2016-11-22] MEDS: LEVOFLOXACIN 500 MG TAB PO SCH (17:21)
[2016-11-22] MEDS: ATORVASTATIN 80 MG TAB PO SCH (22:59)
[2016-11-22] MEDS: ONDANSETRON HCL 4 MG/2 ML VIAL IVP PRN (23:07)
[2016-11-23] VITALS (25 sets, daily range): BP systolic 89–136; BP diastolic 50–88; PULSE 35–74; RESP 18–22; TEMP 97.6–98.3; O2SAT 93–100
[2016-11-23] MEDS: MEROPENEM INJ 500 MG in SODIUM CHLORIDE 0.9% INJ 100 ML IV SCH ×3 (01:00→16:42)
[2016-11-23] MEDS: ONDANSETRON HCL 4 MG/2 ML VIAL IVP PRN (05:12)
[2016-11-23] MEDS: MIDODRINE 5 MG TAB PO SCH ×3 (06:38→16:43)
[2016-11-23] MEDS: SODIUM CHLORIDE 0.9% FLUSH 10 ML FLUSH IV FLUSH SCH ×2 (08:16→22:06)
[2016-11-23] MEDS: ISOSORBIDE MONONITRATE 30 MG TAB PO SCH (08:16)
[2016-11-23] MEDS: ASPIRIN EC 81 MG TABEC PO SCH (08:17)
[2016-11-23] MEDS: LEVOFLOXACIN 500 MG TAB PO SCH (08:17)
[2016-11-23] MEDS: AMANTADINE HCL 100 MG CAP PO SCH (08:18)
[2016-11-23] MEDS: predniSONE 5 MG TAB PO SCH (08:18)
--- NOTE | 2016-11-23 08:47 | PD.CARD.PN ---
Subjective Subjective Remarks The patient feels somewhat weak but denies any true cardiac symptomatology, GI symptoms or bleeding. I was called during the night about sinus bradycardia. EKG actually today showed high degree AV block with sinus rhythm and new left bundle branch block. He is off of all antiarrhythmics. BMP is pending. Objective Vital Signs / I&O Vital Signs Date Time Temp Pulse Resp B/P Pulse Ox O2 Delivery O2 Flow Rate FiO2 11/23/16 07:00 97.8 41 20 89/52 96 11/23/16 06:00 36 11/23/16 05:00 40 11/23/16 04:00 42 11/23/16 03:00 98.2 44 20 92/54 100 11/23/16 03:00 44 11/23/16 02:00 52 11/23/16 01:00 56 11/23/16 00:00 74 11/22/16 23:00 72 11/22/16 23:00 98.0 90 20 146/69 98 11/22/16 22:00 70 11/22/16 21:00 70 11/22/16 20:00 70 11/22/16 19:00 68 11/22/16 19:00 98.2 73 20 111/78 98 11/22/16 18:18 68 11/22/16 17:44 79 11/22/16 16:43 85 11/22/16 15:51 97.8 80 18 104/73 96 11/22/16 15:04 80 11/22/16 14:07 86 11/22/16 13:06 128 11/22/16 12:53 128 11/22/16 11:15 97.8 112 20 94/74 96 11/22/16 11:02 131 11/22/16 10:21 134 11/22/16 09:00 138 I/O 11/22/16 11/22/16 11/22/16 11/23/16 11/23/16 11/23/16 07:00 15:00 23:00 07:00 15:00 23:00 Intake Total 480 ml 940 ml 390 ml Output Total 100 ml 700 ml Balance 380 ml 240 ml 390 ml Intake Oral 480 ml 240 ml 120 ml IV Total 0 ml 700 ml 270 ml Output Urine Total 100 ml 700 ml Emesis 0 ml # Voids 3 2 # Bowel Movements 1 0 1 Physical Exam GENERAL: Frail patient in no apparent distress. SKIN: Warm and dry. NECK: JVD normal - less than or equal to 5 cm H20. CARDIOVASCULAR: Regular rate and rhythm without murmurs, gallops, or rubs. RESPIRATORY: Normal breath sounds - equal bilaterally. No accessory muscle use. No wheezes, rales or rubs. PERIPHERY: No cyanosis, or edema. Laboratory Pending Imaging Reviewed Assessment and Plan Assessment and Plan Problems: High degree heart block which occurred after treating with Cardizem and amiodarone and new left bundle branch block Atrial fibrillation with rapid response Bifascicular block Ischemic cardiomyopathy Possible pneumonia MRSA wound Hypertension Hyperlipidemia Multiple sclerosis Recent bleeding from decubitus Cachexia Recommendations: The patient is in overall very poor condition and is a [facility] resident. We would manage him medically. My recommendations include the following: Keep off of all antiarrhythmics Check BMP Ideally we would want to put a pacemaker or defibrillator in him but he is not a candidate with his active infection. He is also a DO NOT RESUSCITATE. DVT prophylaxis and antibiotics which I will leave to the primary service. He is presently a poor candidate for full anticoagulation Prognosis is guarded. Pete Bangura MD Nov 23, 2016 08:47
--- NOTE | 2016-11-23 09:45 | HHI.PR ---
Subjective Remarks Follow up shortness of breath 11/20/16-patient seen and examined; denies any significant shortness of breath or chest pain. BP low but patient is asymptomatic; HR slightly up.Afebrile 11/21/16-patient seen and examined, he was started yesterday on IV antibiotic secondary to left lower inner buttock wound and is currently afebrile. Patient was treated with amiodarone 200 mg 1 due to A. fib with RVR and patient currently rate control. Denies any chest pain or shortness of breath. 11/22/16-patient seen and examined,denies any heart palpitation; afebrile. HR still up however BP low 11/23/16-patient seen and examined, reports symptoms of nausea and emesis 1 this morning. States, his last meal was breakfast yesterday . Patient now with high degree AV block with left bundle branch block however denies any symptoms. Heart rate in low-dose 30 and BP remains low. Objective Vitals Vital Signs Date Time Temp Pulse Resp B/P Pulse Ox O2 Delivery O2 Flow Rate FiO2 11/23/16 07:00 97.8 41 20 89/52 96 11/23/16 06:00 36 11/23/16 05:00 40 11/23/16 04:00 42 11/23/16 03:00 98.2 44 20 92/54 100 11/23/16 03:00 44 11/23/16 02:00 52 11/23/16 01:00 56 11/23/16 00:00 74 11/22/16 23:00 72 11/22/16 23:00 98.0 90 20 146/69 98 11/22/16 22:00 70 11/22/16 21:00 70 11/22/16 20:00 70 11/22/16 19:00 68 11/22/16 19:00 98.2 73 20 111/78 98 11/22/16 18:18 68 11/22/16 17:44 79 11/22/16 16:43 85 11/22/16 15:51 97.8 80 18 104/73 96 11/22/16 15:04 80 11/22/16 14:07 86 11/22/16 13:06 128 11/22/16 12:53 128 11/22/16 11:15 97.8 112 20 94/74 96 11/22/16 11:02 131 11/22/16 10:21 134 I/O 11/22/16 11/22/16 11/22/16 11/23/16 11/23/16 11/23/16 07:00 15:00 23:00 07:00 15:00 23:00 Intake Total 480 ml 940 ml 390 ml Output Total 100 ml 700 ml Balance 380 ml 240 ml 390 ml Intake Oral 480 ml 240 ml 120 ml IV Total 0 ml 700 ml 270 ml Output Urine Total 100 ml 700 ml Emesis 0 ml # Voids 3 2 # Bowel Movements 1 0 1 Result Diagram: 11/22/16 0250 11/22/16 0250 Objective Remarks GENERAL: NAD SKIN: Warm and dry. HEAD: Normocephalic. EYES: No scleral icterus. No injection or drainage. NECK: Supple, trachea midline. No JVD or lymphadenopathy. CARDIOVASCULAR: Regular rate and rhythm without murmurs, gallops, or rubs. RESPIRATORY: Breath sounds decrease in Left lung bilaterally. No accessory muscle use. GASTROINTESTINAL: Abdomen soft, non-tender, nondistended. MUSCULOSKELETAL: No cyanosis, or edema. BACK: Nontender without obvious deformity. No CVA tenderness. Dressing over left lower inner buttock wound A/P Problem List: (1) Atypical chest pain ICD Code: R07.89 Status: Acute (2) Acute on chronic systolic congestive heart failure ICD Code: I50.23 Status: Acute (3) Acute renal failure ICD Code: N17.9 Status: Acute (4) Hypotension ICD Code: I95.9 Status: Acute (5) Infected wound ICD Code: T14.8 Status: Acute (6) Atrial fibrillation with RVR ICD Code: I48.91 Status: Acute (7) LBBB (left bundle branch block) ICD Code: I44.7 Status: Acute Assessment and Plan 71-year-old man with A. fib with RVR High degree AV block Left bundle branch block 2-D echo 20-25% however secondary to hypotension ESTELA inhibitor is contraindicated Amiodarone drip as well as Cardizem were discontinued last night by cardiology Ideally patient would benefit from pacemaker or defibrillator, however he does not appear to be a surgical candidate in the face of this current infection Therefore will consult hospice on 11/23/16 Appreciate input from cardiology, with whom the case was discussed this a.m. Left lower inner buttock wound-[facility] associated pneumonia Currently on IV vancomycin , imipenem, Levaquin Wound care nurse consult appreciate Reconsult General surgery for eval for possible I&D Appreciate input from ID CTA with finding of Extensive consolidation left lower lobe-healthcare associated pneumonia Currently on imipenem, Levaquin Atypical chest pain ACS ruled out per protocol with serial cardiac enzyme and EKGs Nitroglycerin contraindicated secondary to hypotension VQ scan with low probability for PE Continue aspirin and statin, however hold beta abilio secondary to hypotension 2-D echo 20-25% however secondary to hypotension ESTELA inhibitor is contraindicated CTA with finding of B pleural effusion Systolic CHF 2-D echo 20-25% however secondary to hypotension ESTELA inhibitor is contraindicated Chest x-ray without any cardio pulmonary disease Due to hypotension with hold Lasix Imdur with holding parameters Hypotension Continue Midodrine 10mg TID Hold all oral anti hypertensive meds Hyperlipidemia continue statin DVT prophylaxis: Bilateral SCDs Consult hospice 11/23/16 Liang Shaikh MD Nov 23, 2016 09:45
[2016-11-23 10:48] LABS: BICARBONATE 20.7 MEQ/L (21.0-32.0); POTASSIUM 5.7 MEQ/L (3.5-5.1)
[2016-11-23] MEDS: VANCOMYCIN INJ 1,000 MG in SODIUM CHLOR 0.9% 250 ML INJ 250 ML IV SCH (14:42)
[2016-11-23] MEDS ORDERED: PHARMACY ORDERED LAB ONE (14:45)
--- NOTE | 2016-11-23 15:28 | EKG ---
Date Performed: 11/23/2016 Time Performed: 08:25:20 PTAGE: 71 years EKG: There is Sinus rhythm with a rate of 80 with complete heart block with what appears to be an idioventricular escape rhythm that is variable in rate between 30 and 40. Compared to previous tracing, atrial fibrillation has be en replaced by a sinus rhythm with complete heart block with idioventricular escape rhythm. Rate is o verall quite slow, averaging 34. Clinical correlation and follow up tracing strongly recommended. Abn ormal ECG PREVIOUS TRACING : 11/22/2016 03.59 DOCTOR: Jasper Jaeger Interpretating Date/Time 11/23/2016 15:27:08
[2016-11-23] MEDS: CALCIUM CARBONATE 500 MG CHEWABLE TAB PO PRN (17:28)
[2016-11-23] MEDS ORDERED: IOHEXOL 350 MG/ML 10 ML VIAL (for RAD DIAG) IV ONE (21:20)
--- NOTE | 2016-11-23 21:54 | RADRPT ---
EXAM DATE/TIME: 11/23/2016 21:17 [facility] COMPARISON: CT PULMONARY ANGIOGRAM, November 22, 2016, 5:21. INDICATIONS : Abscess. IV CONTRAST: 90 cc Omnipaque 350 (iohexol) IV ORAL CONTRAST: No oral contrast ingested. RADIATION DOSE: 4.92 CTDIvol (mGy) MEDICAL HISTORY : Cardiovascular disease. Multiple sclerosis. Hypertension. SURGICAL HISTORY : None. ENCOUNTER: Initial ACUITY: 1 day PAIN SCALE: 3/10 LOCATION: Bilateral abdomen TECHNIQUE: Volumetric scanning of the abdomen and pelvis was performed. Using automated exposure control and ad justment of the mA and/or kV according to patient size, radiation dose was kept as low as reasonably achievable to obtain optimal diagnostic quality images. DICOM format image data is available electro nically for review and comparison. FINDINGS: LOWER LUNGS: Large bilateral pleural effusions and consolidative infiltrates in the lower lungs, similar to yester day's CT pulmonary angiogram. LIVER: There are 2 cysts, quadrate lobe measuring 1.7 cm and caudate lobe measuring 7 mm. No solid lesions seen. There is vicarious excretion into the gallbladder probably related to contrast administered fo r the CT pulmonary angiogram. SPLEEN: Normal size without lesion. PANCREAS: Within normal limits. KIDNEYS: Normal in size and shape. There is no mass, stone or hydronephrosis. 2.2 cm cyst midpole right kidn ey. ADRENAL GLANDS: Within normal limits. VASCULAR: There is no aortic aneurysm. BOWEL/MESENTERY: No dilated loops of small or large bowel. Oral contrast is present in the right and transverse colon . Contrast and gas is present in the normal size appendix. ABDOMINAL WALL: Within normal limits. RETROPERITONEUM: There is no lymphadenopathy. There is a mild amount of free fluid layering in the presacral region, measuring up to 1 cm in thickness. BLADDER: No wall thickening or mass. 1.7 cm peripherally calcified bladder stone. REPRODUCTIVE: Within normal limits. INGUINAL: There is no lymphadenopathy or hernia. MUSCULOSKELETAL: Healed fractures of posterior left ribs. CONCLUSION: 1. Mild amount of free fluid in the dependent pelvis. 2. Stable moderate-sized bilateral pleural effusions and lower lobe consolidation. 3. Hepatic and right renal cysts. iWlliam Sanders MD on November 23, 2016 at 21:38 Board Certified Radiologist. This report was verified electronically.
[2016-11-23] MEDS: ATORVASTATIN 80 MG TAB PO SCH (22:06)
[2016-11-24] VITALS (28 sets, daily range): BP systolic 103–169; BP diastolic 48–96; PULSE 41–54; RESP 16–20; TEMP 97.7–98.3; O2SAT 97–99
[2016-11-24] MEDS: MEROPENEM INJ 500 MG in SODIUM CHLORIDE 0.9% INJ 100 ML IV SCH ×3 (00:33→17:50)
--- NOTE | 2016-11-24 06:54 | PD.CARD.PN ---
Subjective Subjective Remarks The patient has mild to moderate fatigue which is improved. He has no other cardiac, GI symptoms or bleeding. Telemetry reveals sinus bradycardia with probable left bundle branch block. Objective Medications Reviewed Vital Signs / I&O Vital Signs Date Time Temp Pulse Resp B/P Pulse Ox O2 Delivery O2 Flow Rate FiO2 11/24/16 03:00 98.3 44 18 106/60 99 11/23/16 23:00 98.3 44 22 103/50 98 11/23/16 19:00 97.9 44 18 106/56 100 11/23/16 18:06 43 11/23/16 17:17 45 11/23/16 16:00 39 11/23/16 15:15 97.6 38 20 112/63 94 11/23/16 15:00 41 11/23/16 14:00 42 11/23/16 13:23 42 11/23/16 12:33 42 11/23/16 11:00 98.3 42 20 136/88 93 11/23/16 11:00 41 11/23/16 10:00 40 11/23/16 09:00 35 11/23/16 08:00 36 11/23/16 07:00 97.8 41 20 89/52 96 11/23/16 07:00 36 I/O 11/23/16 11/23/16 11/23/16 11/24/16 11/24/16 11/24/16 07:00 15:00 23:00 07:00 15:00 23:00 Intake Total 390 ml 460 ml Output Total 320 ml Balance 390 ml 140 ml Intake Oral 120 ml 240 ml IV Total 270 ml 220 ml Output Urine Total 320 ml # Voids 2 2 # Bowel Movements 1 1 Physical Exam GENERAL: Frail patient in no apparent distress. SKIN: Warm and dry. NECK: JVD normal - less than or equal to 5 cm H20. CARDIOVASCULAR: Regular rate and rhythm without murmurs, gallops, or rubs. RESPIRATORY: Normal breath sounds - equal bilaterally. No accessory muscle use. No wheezes, rales or rubs. PERIPHERY: No cyanosis, or edema. 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 High degree AV block on amiodarone and Cardizem. Sinus bradycardia Atrial fibrillation with rapid response Bifascicular block Ischemic cardiomyopathy Possible pneumonia MRSA wound Hypertension Hyperlipidemia Multiple sclerosis Recent bleeding from decubitus Isolation with MRSA Cachexia Acute on chronic kidney disease DNR Recommendations: The patient is in overall very poor condition and is a snf resident. We would manage him medically. My recommendations include the following: Keep off of all antiarrhythmics Ideally we would want to put a pacemaker or defibrillator in him but he is not a candidate with his active infection. He is also a DO NOT RESUSCITATE. DVT prophylaxis and antibiotics which I will leave to the primary service. He is presently a poor candidate for full anticoagulation Prognosis is guarded. At this point I have nothing more to add. I have discussed hospice with the patient and he is open to this. I will leave further management to the primary service. Pete Bangura MD Nov 24, 2016 06:54
[2016-11-24] MEDS: MIDODRINE 5 MG TAB PO SCH ×3 (07:39→16:27)
--- NOTE | 2016-11-24 08:13 | HHI.PR ---
Subjective Remarks Follow up shortness of breath 11/20/16-patient seen and examined; denies any significant shortness of breath or chest pain. BP low but patient is asymptomatic; HR slightly up.Afebrile 11/21/16-patient seen and examined, he was started yesterday on IV antibiotic secondary to left lower inner buttock wound and is currently afebrile. Patient was treated with amiodarone 200 mg 1 due to A. fib with RVR and patient currently rate control. Denies any chest pain or shortness of breath. 11/22/16-patient seen and examined,denies any heart palpitation; afebrile. HR still up however BP low 11/23/16-patient seen and examined, reports symptoms of nausea and emesis 1 this morning. States, his last meal was breakfast yesterday . Patient now with high degree AV block with left bundle branch block however denies any symptoms. Heart rate in low-dose 30 and BP remains low. 11/24/16-patient seen and examined, in sinus bradycardia however asymptomatic. Patient appears tired and fatigued. Only complains of lower extremity cramping. Afebrile Objective Vitals Vital Signs Date Time Temp Pulse Resp B/P Pulse Ox O2 Delivery O2 Flow Rate FiO2 11/24/16 06:00 44 11/24/16 05:00 44 11/24/16 04:00 44 11/24/16 03:00 46 11/24/16 03:00 98.3 44 18 106/60 99 11/24/16 02:00 44 11/24/16 01:00 42 11/24/16 00:00 44 11/23/16 23:00 44 11/23/16 23:00 98.3 44 22 103/50 98 11/23/16 22:00 44 11/23/16 21:00 44 11/23/16 20:00 46 11/23/16 19:00 44 11/23/16 19:00 97.9 44 18 106/56 100 11/23/16 18:06 43 11/23/16 17:17 45 11/23/16 16:00 39 11/23/16 15:15 97.6 38 20 112/63 94 11/23/16 15:00 41 11/23/16 14:00 42 11/23/16 13:23 42 11/23/16 12:33 42 11/23/16 11:00 98.3 42 20 136/88 93 11/23/16 11:00 41 11/23/16 10:00 40 11/23/16 09:00 35 I/O 11/23/16 11/23/16 11/23/16 11/24/16 11/24/16 11/24/16 07:00 15:00 23:00 07:00 15:00 23:00 Intake Total 390 ml 460 ml 460 ml Output Total 320 ml 200 ml Balance 390 ml 140 ml 260 ml Intake Oral 120 ml 240 ml 360 ml IV Total 270 ml 220 ml 100 ml Output Urine Total 320 ml 200 ml # Voids 2 2 2 # Bowel Movements 1 1 Result Diagram: 11/22/16 0250 11/23/16 1440 Objective Remarks GENERAL: NAD SKIN: Warm and dry. HEAD: Normocephalic. EYES: No scleral icterus. No injection or drainage. NECK: Supple, trachea midline. No JVD or lymphadenopathy. CARDIOVASCULAR: Regular rate and rhythm without murmurs, gallops, or rubs. RESPIRATORY: Breath sounds decrease in Left lung bilaterally. No accessory muscle use. GASTROINTESTINAL: Abdomen soft, non-tender, nondistended. MUSCULOSKELETAL: No cyanosis, or edema. BACK: Nontender without obvious deformity. No CVA tenderness. Dressing over left lower inner buttock wound A/P Problem List: (1) Atypical chest pain ICD Code: R07.89 Status: Acute (2) Acute on chronic systolic congestive heart failure ICD Code: I50.23 Status: Acute (3) Acute renal failure ICD Code: N17.9 Status: Acute (4) Hypotension ICD Code: I95.9 Status: Acute (5) Infected wound ICD Code: T14.8 Status: Acute (6) Atrial fibrillation with RVR ICD Code: I48.91 Status: Acute (7) LBBB (left bundle branch block) ICD Code: I44.7 Status: Acute Assessment and Plan 71-year-old man with A. fib with RVR High degree AV block Left bundle branch block 2-D echo 20-25% however secondary to hypotension ESTELA inhibitor is contraindicated Amiodarone drip as well as Cardizem were discontinued 11/23/16 by cardiology Ideally patient would benefit from pacemaker or defibrillator, however he does not appear to be a surgical candidate in the face of this current infection Poor candidate for oral anticoagulation Hospice consultation pending Left lower inner buttock wound-[facility] associated pneumonia Currently on IV vancomycin , imipenem, Levaquin Wound care nurse consult appreciate Initially surgery was consulted however recommended plastic surgery, which we don't have here at his hospital at this time Appreciate input from ID CTA with finding of Extensive consolidation left lower lobe-healthcare associated pneumonia Currently on imipenem, Levaquin Atypical chest pain ACS ruled out per protocol with serial cardiac enzyme and EKGs Nitroglycerin contraindicated secondary to hypotension VQ scan with low probability for PE Continue aspirin and statin, however hold beta abilio secondary to hypotension 2-D echo 20-25% however secondary to hypotension ESTELA inhibitor is contraindicated CTA with finding of B pleural effusion Systolic CHF 2-D echo 20-25% however secondary to hypotension ESTELA inhibitor is contraindicated Chest x-ray without any cardio pulmonary disease Due to hypotension with hold Lasix Imdur with holding parameters Hypotension Continue Midodrine 10mg TID Hold all oral anti hypertensive meds Hyperlipidemia continue statin DVT prophylaxis: Bilateral SCDs Hospice has been consulted Discharge Planning Discharge pending evaluation from hospice Liang Shaikh MD Nov 24, 2016 08:13
[2016-11-24] MEDS: SODIUM CHLORIDE 0.9% FLUSH 10 ML FLUSH IV FLUSH SCH ×2 (09:12→20:54)
[2016-11-24] MEDS: LEVOFLOXACIN 250 MG TAB PO SCH (09:12)
[2016-11-24] MEDS: ISOSORBIDE MONONITRATE 30 MG TAB PO SCH (09:12)
[2016-11-24] MEDS: predniSONE 5 MG TAB PO SCH (09:12)
[2016-11-24] MEDS: ASPIRIN EC 81 MG TABEC PO SCH (09:12)
[2016-11-24] MEDS: AMANTADINE HCL 100 MG CAP PO SCH (09:13)
--- NOTE | 2016-11-24 10:27 | HHI.PR ---
Addendum to Inpatient Note Addendum Reason: Additional Documentation Additional Information Case discussed with Dr. Garcia, who will see patient on consultation for drainage and excision of possible left inner buttock decubitus +/-abscess with surrounding cellulitis Liang Shaikh MD Nov 24, 2016 10:27
[2016-11-24] MEDS: VANCOMYCIN INJ 1,000 MG in SODIUM CHLOR 0.9% 250 ML INJ 250 ML IV SCH (16:27)
[2016-11-24] MEDS: ATORVASTATIN 80 MG TAB PO SCH (20:54)
[2016-11-25] VITALS (30 sets, daily range): BP systolic 99–121; BP diastolic 61–92; PULSE 44–121; RESP 16–22; TEMP 97.4–98.1; O2SAT 94–98
[2016-11-25] MEDS: MEROPENEM INJ 500 MG in SODIUM CHLORIDE 0.9% INJ 100 ML IV SCH ×3 (01:20→17:44)
[2016-11-25] MEDS: MIDODRINE 5 MG TAB PO SCH ×3 (06:20→17:44)
--- NOTE | 2016-11-25 08:50 | HHI.PR ---
Subjective Remarks resting in no acute distress although somewhat ill looking. denies chest pain. but he says that overall he's not feeling good. d/w the RN. Objective Vitals Vital Signs Date Time Temp Pulse Resp B/P Pulse Ox O2 Delivery O2 Flow Rate FiO2 11/25/16 06:00 75 11/25/16 05:00 74 11/25/16 04:00 74 11/25/16 04:00 98.1 74 16 116/71 97 11/25/16 03:00 82 11/25/16 02:00 76 11/25/16 01:00 54 11/25/16 00:00 97.9 80 16 99/61 97 11/25/16 00:00 44 11/24/16 23:00 52 11/24/16 22:00 50 11/24/16 21:00 44 11/24/16 20:55 97.7 47 20 127/67 97 11/24/16 20:00 54 11/24/16 19:00 52 11/24/16 18:00 52 11/24/16 17:00 52 11/24/16 16:00 42 11/24/16 15:45 97.8 52 16 169/96 97 11/24/16 15:00 41 11/24/16 14:00 46 11/24/16 13:00 44 11/24/16 12:00 42 11/24/16 11:15 98.0 44 17 103/58 99 11/24/16 11:00 44 11/24/16 10:00 44 11/24/16 09:00 44 I/O 11/24/16 11/24/16 11/24/16 11/25/16 11/25/16 11/25/16 07:00 15:00 23:00 07:00 15:00 23:00 Intake Total 460 ml 720 ml 340 ml Output Total 200 ml Balance 260 ml 720 ml 340 ml Intake Oral 360 ml 720 ml 240 ml IV Total 100 ml 100 ml Output Urine Total 200 ml # Voids 2 4 2 # Bowel Movements 0 Result Diagram: 11/22/16 0250 11/25/[address] Angiography 11/22/16 0000 Signed Impressions: Service Date/Time: Tuesday, November 22, 2016 05:21 - CONCLUSION: No evidence of pulmonary embolism. Bilateral pleural effusions left greater then right. Extensive consolidation left lower lobe. Eleazar Heller MD Abdomen/Pelvis CT 11/22/16 0000 Signed Impressions: Service Date/Time: Wednesday, November 23, 2016 21:17 - CONCLUSION: 1. Mild amount of free fluid in the dependent pelvis. 2. Stable moderate-sized bilateral pleural effusions and lower lobe consolidation. 3. Hepatic and right renal cysts. William Sanders MD Chest X-Ray 11/19/16 1007 Signed Impressions: Service Date/Time: Saturday, November 19, 2016 10:29 - CONCLUSION: 1. No acute cardiopulmonary disease. Khadar Thakkar MD Lung Scan-V[facility] Nuclear Medicine 11/19/16 0000 Signed Impressions: Service Date/Time: Saturday, November 19, 2016 12:46 - CONCLUSION: Low probability scan for pulmonary embolism. Rod Hdez MD Objective Remarks GENERAL: in no apparent distress. CARDIOVASCULAR: Regular rate and regular rhythm without murmurs, gallops, or rubs. RESPIRATORY: Clear to auscultation. Breath sounds equal bilaterally. No wheezes , rales, or rhonchi. GASTROINTESTINAL: Abdomen soft, non-tender, nondistended. Normal, active bowel sounds MUSCULOSKELETAL: Extremities without clubbing, cyanosis, or edema. NEURO: Alert & Oriented x4 to person, place, time, situation. Moves all ext x4 Procedures none Medications and IVs Current Medications Sodium Chloride 2 ml 2 ml UNSCH PRN IVF FLUSH AFTER USING IV ACCESS Last administered on 11/19/16 10:17; Start 11/19/16 at 10:15; Stop 11/19/16 at 13:13 ; Status DC Sodium Chloride (NS 500 ml Inj) 500 ml @ 500 mls/hr ONCE ONCE IV Last administered on 11/19/16 10:17; Start 11/19/16 at 10:15; Stop 11/19/16 at 11:14 ; Status DC Sodium Chloride (NS Flush) 2 ml UNSCH PRN IV FLUSH FLUSH AFTER USING IV ACCESS ; Start 11/19/16 at 13:15 Sodium Chloride (NS Flush) 2 ml BID IV FLUSH Last administered on 11/24/16 20: 54; Start 11/19/16 at 21:00 Acetaminophen (Tylenol) 650 mg Q4H PRN PO TEMP > 100.4; Start 11/19/16 at 13:15 Ondansetron HCl (Zofran Inj) 4 mg Q6H PRN IVP NAUSEA OR VOMITING Last administered on 11/23/16 05:12; Start 11/19/16 at 13:15 Acetaminophen (Tylenol) 650 mg Q6H PRN PO PAIN SCALE 1 TO 2; Start 11/19/16 at 13:15 Naloxone HCl 0.4 mg 0.4 mg UNSCH PRN IV SEE LABEL COMMENTS; Start 11/19/16 at 13:15 Sodium Chloride (NS 250 ml Inj) 250 ml @ 250 mls/hr BOLUS ONCE IV Last administered on 11/19/16 17:18; Start 11/19/16 at 15:30; Stop 11/19/16 at 16:33 ; Status DC Amantadine HCl (Symmetrel) 100 mg DAILY PO Last administered on 11/24/16 09:13 ; Start 11/20/16 at 09:00 Aspirin (Ecotrin Ec) 81 mg DAILY PO Last administered on 11/24/16 09:12; Start 11/20/16 at 09:00 Atorvastatin Calcium (Lipitor) 80 mg HS PO Last administered on 11/24/16 20:54 ; Start 11/19/16 at 21:00 Isosorbide Mononitrate (Imdur) 30 mg DAILY PO Last administered on 11/24/16 09 :12; Start 11/20/16 at 09:00 Prednisone (Deltasone) 5 mg DAILY PO Last administered on 11/24/16 09:12; Start 11/20/16 at 09:00 Midodrine (Proamatine) 5 mg TID@07,12,17 PO Last administered on 11/22/16 06: 12; Start 11/20/16 at 08:45; Stop 11/22/16 at 08:55; Status DC Albuterol/ Ipratropium 1 ampule 1 ampule Q2HR NEB PRN NEB SOB/WHEEZING; Start 11/20/16 at 08:45 Pharmacy Profile Note 0 ml @ 0 mls/hr UNSCH OTHER ; Start 11/20/16 at 14:00 Vancomycin HCl 1000 mg/Sodium Chloride 250 ml @ 250 mls/hr Q12H IV Last administered on 11/20/16 15:20; Start 11/20/16 at 14:00; Stop 11/20/16 at 15:28 ; Status DC Piperacillin Sod/ Tazobactam Sod (Zosyn 2.25 Gm Premix) 50 ml @ 100 mls/hr Q8H IV Last administered on 11/20/16 18:00; Start 11/20/16 at 18:00; Stop at 21:39; Status DC Amiodarone HCl 200 mg 200 mg ONCE ONCE PO Last administered on 11/20/16 15:34 ; Start 11/20/16 at 16:00; Stop 11/20/16 at 16:01; Status DC Vancomycin HCl/ Sodium Chloride (Vancomycin Inj/ NS 250 ml Inj) 250 ml @ 250 mls/hr Q24H IV Last administered on 11/24/16 16:27; Start 11/21/16 at 15:00 Miscellaneous Information SPECIFIC LAB TO BE DRAWN:VANCOMYCIN TROUGH DATE TO... ONCE ONCE .XX Last administered on 11/23/16 14:45; Start 11/23/16 at 14:45; Stop 11/23/16 at 14:46; Status DC Amiodarone HCl (Cordarone) 200 mg ONCE ONCE PO Last administered on 11/22/16 04:30; Start 11/22/16 at 04:15; Stop 11/22/16 at 04:23; Status DC Enoxaparin Sodium (Lovenox Inj) 60 mg ONCE ONCE SQ Last administered on 04:30; Start 11/22/16 at 04:30; Stop 11/22/16 at 04:31; Status DC Atropine Sulfate (Atropine Inj) 1 mg STK-MED ONCE .ROUTE ; Start 11/22/16 at 05: 14; Stop 11/22/16 at 05:15; Status DC Epinephrine HCl (EPINEPHrine (1:10,000) INJ) 1 mg STK-MED ONCE .ROUTE ; Start at 05:14; Stop 11/22/16 at 05:15; Status DC Iohexol 65 ml 65 ml STK-MED ONCE IV Last administered on 11/22/16 05:33; Start 11/22/16 at 05:33; Stop 11/22/16 at 05:34; Status DC Cefepime HCl 2000 mg/Sodium Chloride 100 ml @ 200 mls/hr Q8H IV ; Start at 09:00; Stop 11/22/16 at 09:00; Status DC Amiodarone HCl 150 mg/Dextrose 100 ml @ 600 mls/hr NOW ONCE IV Last administered on 11/22/16 08:42; Start 11/22/16 at 09:00; Stop 11/22/16 at 09:09 ; Status DC Amiodarone HCl/ Dextrose (Cordarone Inj/ D5W ([place]) Inj) 250 ml @ 0 mls/hr CONTINUOUS IV Last administered on 11/22/16 17:18; Start 11/22/16 at 09:00; Stop 11/23/16 at 07:51; Status DC Midodrine (Proamatine) 10 mg TID@07,12,17 PO Last administered on 11/25/16 06: 20; Start 11/22/16 at 12:00 Diltiazem HCl 15 mg 15 mg BOLUS PRN IV PUSH SEE DOSE INSTRUCTIONS Last administered on 11/22/16 12:28; Start 11/22/16 at 12:00; Stop 11/23/16 at 11:59 ; Status DC Diltiazem HCl/ Sodium Chloride (Cardizem Inj/NS Inj) 125 ml @ 0 mls/hr TITRATE IV Last administered on 11/22/16 12:28; Start 11/22/16 at 12:00; Stop at 08:43; Status DC Levofloxacin (Levaquin) 500 mg DAILY PO Last administered on 11/23/16 08:17; Start 11/22/16 at 16:00; Stop 11/23/16 at 12:35; Status DC Miscellaneous Medication (ASP Crit: Path resist to other, cult proven) 1 UNSCH X1 PRN .XX PHARMACY DOCUMENTATION; Start 11/22/16 at 16:15; Stop 11/23/16 at 16 :14; Status DC Miscellaneous Medication 1 1 UNSCH X1 PRN XX PHARMACY DOCUMENTATION; Start at 16:15; Stop 11/23/16 at 16:14; Status DC Meropenem/Sodium Chloride (Merrem Inj/NS Inj) 100 ml @ 200 mls/hr Q8H IV Last administered on 11/25/16 01:20; Start 11/22/16 at 17:00 Diatrizoate Meglum/ Diatrizoate Sod ( Gastromaribel Liq) 18 ml ONCE ONCE PO Last administered on 11/22/16 17:22; Start 11/22/16 at 17:00; Stop 11/22/16 at 17:01; Status DC Levofloxacin (Levaquin) 250 mg DAILY PO Last administered on 11/24/16 09:12; Start 11/24/16 at 09:00 Calcium Carbonate (Tums Chew) 500 mg BID PRN PO HEARTBURN Last administered on 11/23/16 17:28; Start 11/23/16 at 17:15 Iohexol (Omnipaque 350 Inj) 90 ml STK-MED ONCE IV Last administered on 21:20; Start 11/23/16 at 21:20; Stop 11/23/16 at 21:21; Status DC Miscellaneous Information SPECIFIC LAB TO BE MERT... ONCE ONCE .XX ; Start at 14:45; Stop 11/27/16 at 14:46 A/P Assessment and Plan A/P A. fib with RVR High degree AV block Left bundle branch block 2-D echo 20-25% however secondary to hypotension ESTELA inhibitor is contraindicated Amiodarone drip as well as Cardizem were discontinued 11/23/16 by cardiology Ideally patient would benefit from pacemaker or defibrillator, however he does not appear to be a surgical candidate in the face of this current infection. Poor candidate for oral anticoagulation Hospice consult appreciated and the patient agreed with the Hospice. Left lower inner buttock wound-[facility] associated pneumonia Currently on IV vancomycin , imipenem, Levaquin Wound care nurse consult appreciate Initially surgery was consulted however recommended plastic surgery, which we don't have here at his hospital at this time Appreciate input from ID awaiting recommendations. CTA with finding of Extensive consolidation left lower lobe-healthcare associated pneumonia Currently on imipenem, Levaquin Atypical chest pain ACS ruled out per protocol with serial cardiac enzyme and EKGs VQ scan with low probability for PE Continue aspirin and statin, however hold beta abilio secondary to hypotension 2-D echo 20-25% however secondary to hypotension ESTELA inhibitor is contraindicated CTA with finding of pleural effusion Systolic CHF 2-D echo 20-25% however secondary to hypotension ESTELA inhibitor is contraindicated Chest x-ray without any cardio pulmonary disease Due to hypotension with hold Lasix Imdur with holding parameters Hypotension Continue Midodrine 10mg TID Hold all oral anti hypertensive meds Hyperlipidemia continue statin DVT prophylaxis: Bilateral SCDs Hospice has been consulted Discharge Planning dc to SNF with Hospice- awaiting recommendations. d/w the patient and RN. Judie Vazquez MD Nov 25, 2016 08:50
[2016-11-25] MEDS: SODIUM CHLORIDE 0.9% FLUSH 10 ML FLUSH IV FLUSH SCH ×2 (09:10→21:35)
[2016-11-25] MEDS: ASPIRIN EC 81 MG TABEC PO SCH (09:10)
[2016-11-25] MEDS: predniSONE 5 MG TAB PO SCH (09:10)
[2016-11-25] MEDS: AMANTADINE HCL 100 MG CAP PO SCH (09:10)
[2016-11-25] MEDS: LEVOFLOXACIN 250 MG TAB PO SCH (09:10)
[2016-11-25] MEDS: ISOSORBIDE MONONITRATE 30 MG TAB PO SCH (09:11)
--- NOTE | 2016-11-25 14:27 | PD.CAR.PN ---
CVT Progress Note Subjective/Hospital Course: 71-year-old gentleman with multiple comorbidities, thin and malnourished appearing. Severe cardiac dysfunction with ejection fraction between 20 and 25% . Patient is scheduled to go to hospice however has a draining decubitus on his sacrum and needs to be debrided prior to discharge Patient is clearly at high risk candidate for any surgery but we will do her short operation with minimal anesthetic and surgical intrusion to the physiologic parameters Patient is as optimized as he can be at this point and we'll go ahead with debridement tomorrow Have discussed the risks and benefits with patient in detail Objective: Vital Signs Date Time Temp Pulse Resp B/P Pulse Ox O2 Delivery O2 Flow Rate FiO2 11/25/16 11:35 110/78 11/25/16 11:10 97.8 115 19 108/79 98 11/25/16 11:00 103 11/25/16 10:00 112 11/25/16 09:00 94 11/25/16 08:00 76 11/25/16 07:35 97.5 82 16 121/92 97 11/25/16 07:00 76 11/25/16 06:00 75 11/25/16 05:00 74 11/25/16 04:00 74 11/25/16 04:00 98.1 74 16 116/71 97 11/25/16 03:00 82 11/25/16 02:00 76 11/25/16 01:00 54 11/25/16 00:00 97.9 80 16 99/61 97 11/25/16 00:00 44 11/24/16 23:00 52 11/24/16 22:00 50 11/24/16 21:00 44 11/24/16 20:55 97.7 47 20 127/67 97 11/24/16 20:00 54 11/24/16 19:00 52 11/24/16 18:00 52 11/24/16 17:00 52 11/24/16 16:00 42 11/24/16 15:45 97.8 52 16 169/96 97 11/24/16 15:00 41 Labs: Laboratory Tests Test 11/25/16 06:30 Creatinine 1.76 MG/DL (0.60-1.30) Estimat Glomerular Filtration 38 ML/MIN (>89) Rate Result Diagram: 11/22/16 0250 11/25/16 0630 Ajay Aguilera MD Nov 25, 2016 14:27
[2016-11-25] MEDS: VANCOMYCIN INJ 1,000 MG in SODIUM CHLOR 0.9% 250 ML INJ 250 ML IV SCH (15:17)
[2016-11-25] MEDS ORDERED: MIDO5TAB PO (15:45)
[2016-11-25] MEDS: ATORVASTATIN 80 MG TAB PO SCH (21:35)
--- NOTE | 2016-11-25 21:42 | HHI.IDPN ---
Subjective Subjective Remarks 71-year-old male with PMHx significant for Multiple sclerosis, reports being bed bound most of the times, sacral decub present on admission. He reports he developed a sacral decub while at the half-way and a specialty bed was ordered for him. He also has h/o CAD, ? angioplasty, CHF. [facility] of an acute onset of chest pressure as well as hypotension while patient was awaiting for his appointment today. Patient states around 7:30 AM he experience chest pressure rated 7/10 in intensity associated with lightheadedness, dizziness along with shortness of breath. EMS was called, and patient was noted to have low BP for which he was given [address] angiogram negative for PE but bilateral consolidation noted. Pt on empiric antibiotics for PNA and Sacral decub ulcer site infection with MRSA and ESBL. ID consulted for the same. Antibiotics Oxacillin IV Lines Line sites with no e/o infection Past Medical History reviewed Allergies: Coded Allergies: Oxacillin (Verified Allergy, Unknown, 11/19/16) *MDRO Multi-Drug Resistant Organism (Verified Adverse Reaction, Unknown, ) MRSA and ESBL - E.coli (buttock) 11/20/16 Objective . Vital Signs Date Time Temp Pulse Resp B/P Pulse Ox O2 Delivery O2 Flow Rate FiO2 11/25/16 20:00 97.7 120 20 110/80 94 11/25/16 18:00 88 11/25/16 17:46 121/86 11/25/16 17:00 60 11/25/16 16:04 74 11/25/16 15:05 97.4 81 16 99/66 96 11/25/16 15:00 69 11/25/16 14:00 56 11/25/16 13:00 86 11/25/16 12:00 112 11/25/16 11:35 110/78 11/25/16 11:10 97.8 115 19 108/79 98 11/25/16 11:00 103 11/25/16 10:00 112 11/25/16 09:00 94 11/25/16 08:00 76 11/25/16 07:35 97.5 82 16 121/92 97 11/25/16 07:00 76 11/25/16 06:00 75 11/25/16 05:00 74 11/25/16 04:00 74 11/25/16 04:00 98.1 74 16 116/71 97 11/25/16 03:00 82 11/25/16 02:00 76 11/25/16 01:00 54 11/25/16 00:00 97.9 80 16 99/61 97 11/25/16 00:00 44 11/24/16 23:00 52 11/24/16 22:00 50 11/24/16 11/24/16 11/25/16 14:59 22:59 06:59 Intake Total 720 ml 340 ml Balance 720 ml 340 ml Intake Oral 720 ml 240 ml IV Total 100 ml # Voids 4 2 # Bowel Movements 0 . Laboratory Tests Test 11/25/16 06:30 Creatinine 1.76 MG/DL Estimat Glomerular Filtration 38 ML/MIN Rate Imaging Last Impressions CT Angiography 11/22/16 0000 Signed Impressions: Service Date/Time: Tuesday, November 22, 2016 05:21 - CONCLUSION: No evidence of pulmonary embolism. Bilateral pleural effusions left greater then right. Extensive consolidation left lower lobe. Eleazar Heller MD Abdomen/Pelvis CT 11/22/16 0000 Signed Impressions: Service Date/Time: Wednesday, November 23, 2016 21:17 - CONCLUSION: 1. Mild amount of free fluid in the dependent pelvis. 2. Stable moderate-sized bilateral pleural effusions and lower lobe consolidation. 3. Hepatic and right renal cysts. William Sanders MD Chest X-Ray 11/19/16 1007 Signed Impressions: Service Date/Time: Saturday, November 19, 2016 10:29 - CONCLUSION: 1. No acute cardiopulmonary disease. Khadar Thakkar MD Lung Scan-V Nuclear Medicine 11/19/16 0000 Signed Impressions: Service Date/Time: Saturday, November 19, 2016 12:46 - CONCLUSION: Low probability scan for pulmonary embolism. Rod Hdez MD Physical Exam GENERAL: Thin built, cachectic appearing male, in no apparent distress. SKIN: No rashes, ecchymoses or lesions. Cool and dry. HEAD: Atraumatic. Normocephalic. No temporal or scalp tenderness. EYES: Pupils equal round and reactive. Extraocular motions intact. No scleral icterus. No injection or drainage. ENT: Nose without bleeding, purulent drainage or septal hematoma. Throat without erythema, tonsillar hypertrophy or exudate. Uvula midline. Airway patent. NECK: Trachea midline. Supple, nontender, no meningeal signs. CARDIOVASCULAR: HS audible. RESPIRATORY: Clear to auscultation. Breath sounds equal bilaterally. No wheezes , rales, or rhonchi. GASTROINTESTINAL: Abdomen soft, non-tender, nondistended. MUSCULOSKELETAL: Extremities without clubbing, cyanosis, or edema. NEUROLOGICAL: Awake and alert. Grossly non focal. Psych: cooperative IV line sites with no e.o infection. Assessment & Plan Remarks Possible Sepsis present on admission (leucocytosis, hypotension). Patient is on chronic steroids and immunecompromised and may not manifest all signs of infection. Pneumonia present on admission ([facility] multiple admissions to hospital for PNA per patient) Infected Sacral Decub ulcer stage 2-3 with possible abscess and surrounding cellulitis. MRSA and ESBL. Multiple Sclerosis on chronic steroids. Afib on admission CAD s.p stents and cardiac cath Recs Continue Vanco IV (target 10-15) Continue Levaquin for atypical coverage for 5 days for atypical PNA. Continue Meropenem (ASP: ESBL infected sacral wound with cellulitis) CBC with diff, Cr, LFTs and vanco trough to be ordered and followed by hospitalist. Saulo Harmon: Plan for surgical debridement in am. Explained to patient that IV antibiotics cannot be given in hospice. He understands and still choses to go to hospice. He was thankful of care provided. I will be available prn in case pt changes his mind and refuses hospices and elects IV antibiotics. Unfortunately i do not have an oral regimen to treat his infections. Will sign off please call me back if any change in plans. Ok to continue IV antibiotics while in hospital. Cathy Pratt MD Nov 25, 2016 21:42
[2016-11-26] VITALS (25 sets, daily range): BP systolic 109–126; BP diastolic 81–94; PULSE 74–130; RESP 16–20; TEMP 97.6–98; O2SAT 95–100
[2016-11-26] MEDS: MEROPENEM INJ 500 MG in SODIUM CHLORIDE 0.9% INJ 100 ML IV SCH ×3 (01:07→17:30)
[2016-11-26] MEDS: MIDODRINE 5 MG TAB PO SCH ×3 (06:40→18:11)
[2016-11-26] MEDS: SODIUM CHLORIDE 0.9% FLUSH 10 ML FLUSH IV FLUSH SCH ×2 (09:00→20:48)
--- NOTE | 2016-11-26 09:00 | HHI.PR ---
Subjective Remarks resting comfortably with no distress. no chest pain or sob. no fever. d/w the RN and no acute issues over night. Objective Vitals Vital Signs Date Time Temp Pulse Resp B/P Pulse Ox O2 Delivery O2 Flow Rate FiO2 11/26/16 06:00 129 11/26/16 05:30 130 11/26/16 04:05 97.7 129 20 109/81 98 11/26/16 04:00 127 11/26/16 03:00 127 11/26/16 02:42 98 11/26/16 02:00 124 11/26/16 01:00 120 11/26/16 00:00 122 11/25/16 23:30 97.5 121 22 114/81 96 11/25/16 23:00 101 11/25/16 22:00 119 11/25/16 21:00 119 11/25/16 20:00 119 11/25/16 20:00 97.7 120 20 110/80 94 11/25/16 19:00 74 11/25/16 18:00 88 11/25/16 17:46 121/86 11/25/16 17:00 60 11/25/16 16:04 74 11/25/16 15:05 97.4 81 16 99/66 96 11/25/16 15:00 69 11/25/16 14:00 56 11/25/16 13:00 86 11/25/16 12:00 112 11/25/16 11:35 110/78 11/25/16 11:10 97.8 115 19 108/79 98 11/25/16 11:00 103 11/25/16 10:00 112 11/25/16 09:00 94 I/O 11/25/16 11/25/16 11/25/16 11/26/16 11/26/16 11/26/16 07:00 15:00 23:00 07:00 15:00 23:00 Intake Total 340 ml 740 ml 365 ml Output Total 200 ml Balance 340 ml 740 ml 165 ml Intake Oral 240 ml 480 ml 240 ml IV Total 100 ml 260 ml 125 ml Output Urine Total 200 ml # Voids 2 4 2 Result Diagram: 11/22/16 0250 11/25/[address] Angiography 11/22/16 0000 Signed Impressions: Service Date/Time: Tuesday, November 22, 2016 05:21 - CONCLUSION: No evidence of pulmonary embolism. Bilateral pleural effusions left greater then right. Extensive consolidation left lower lobe. Eleazar Heller MD Abdomen/Pelvis CT 11/22/16 0000 Signed Impressions: Service Date/Time: Wednesday, November 23, 2016 21:17 - CONCLUSION: 1. Mild amount of free fluid in the dependent pelvis. 2. Stable moderate-sized bilateral pleural effusions and lower lobe consolidation. 3. Hepatic and right renal cysts. William Sanders MD Chest X-Ray 11/19/16 1007 Signed Impressions: Service Date/Time: Saturday, November 19, 2016 10:29 - CONCLUSION: 1. No acute cardiopulmonary disease. Khadar Thakkar MD Lung Scan-VQ Nuclear Medicine 11/19/16 0000 Signed Impressions: Service Date/Time: Saturday, November 19, 2016 12:46 - CONCLUSION: Low probability scan for pulmonary embolism. Rod Hdez MD Objective Remarks GENERAL: in no apparent distress. CARDIOVASCULAR: Regular rate and regular rhythm without murmurs, gallops, or rubs. RESPIRATORY: Clear to auscultation. Breath sounds equal bilaterally. No wheezes , rales, or rhonchi. GASTROINTESTINAL: Abdomen soft, non-tender, nondistended. Normal, active bowel sounds MUSCULOSKELETAL: Extremities without clubbing, cyanosis, or edema. NEURO: Alert & Oriented x4 to person, place, time, situation. Moves all ext x4 Procedures none Medications and IVs Current Medications Sodium Chloride 2 ml 2 ml UNSCH PRN IVF FLUSH AFTER USING IV ACCESS Last administered on 11/19/16 10:17; Start 11/19/16 at 10:15; Stop 11/19/16 at 13:13 ; Status DC Sodium Chloride (NS 500 ml Inj) 500 ml @ 500 mls/hr ONCE ONCE IV Last administered on 11/19/16 10:17; Start 11/19/16 at 10:15; Stop 11/19/16 at 11:14 ; Status DC Sodium Chloride (NS Flush) 2 ml UNSCH PRN IV FLUSH FLUSH AFTER USING IV ACCESS ; Start 11/19/16 at 13:15 Sodium Chloride (NS Flush) 2 ml BID IV FLUSH Last administered on 11/25/16 21: 35; Start 11/19/16 at 21:00 Acetaminophen (Tylenol) 650 mg Q4H PRN PO TEMP > 100.4; Start 11/19/16 at 13:15 Ondansetron HCl (Zofran Inj) 4 mg Q6H PRN IVP NAUSEA OR VOMITING Last administered on 11/23/16 05:12; Start 11/19/16 at 13:15 Acetaminophen (Tylenol) 650 mg Q6H PRN PO PAIN SCALE 1 TO 2; Start 11/19/16 at 13:15 Naloxone HCl 0.4 mg 0.4 mg UNSCH PRN IV SEE LABEL COMMENTS; Start 11/19/16 at 13:15 Sodium Chloride (NS 250 ml Inj) 250 ml @ 250 mls/hr BOLUS ONCE IV Last administered on 11/19/16 17:18; Start 11/19/16 at 15:30; Stop 11/19/16 at 16:33 ; Status DC Amantadine HCl (Symmetrel) 100 mg DAILY PO Last administered on 11/25/16 09:10 ; Start 11/20/16 at 09:00 Aspirin (Ecotrin Ec) 81 mg DAILY PO Last administered on 11/25/16 09:10; Start 11/20/16 at 09:00 Atorvastatin Calcium (Lipitor) 80 mg HS PO Last administered on 11/25/16 21:35 ; Start 11/19/16 at 21:00 Isosorbide Mononitrate (Imdur) 30 mg DAILY PO Last administered on 11/25/16 09: 11; Start 11/20/16 at 09:00 Prednisone (Deltasone) 5 mg DAILY PO Last administered on 11/25/16 09:10; Start 11/20/16 at 09:00 Midodrine (Proamatine) 5 mg TID@07,12,17 PO Last administered on 11/22/16 06: 12; Start 11/20/16 at 08:45; Stop 11/22/16 at 08:55; Status DC Albuterol/ Ipratropium 1 ampule 1 ampule Q2HR NEB PRN NEB SOB/WHEEZING; Start 11/20/16 at 08:45 Pharmacy Profile Note 0 ml @ 0 mls/hr UNSCH OTHER ; Start 11/20/16 at 14:00 Vancomycin HCl 1000 mg/Sodium Chloride 250 ml @ 250 mls/hr Q12H IV Last administered on 11/20/16 15:20; Start 11/20/16 at 14:00; Stop 11/20/16 at 15:28 ; Status DC Piperacillin Sod/ Tazobactam Sod (Zosyn 2.25 Gm Premix) 50 ml @ 100 mls/hr Q8H IV Last administered on 11/20/16 18:00; Start 11/20/16 at 18:00; Stop at 21:39; Status DC Amiodarone HCl 200 mg 200 mg ONCE ONCE PO Last administered on 11/20/16 15:34 ; Start 11/20/16 at 16:00; Stop 11/20/16 at 16:01; Status DC Vancomycin HCl/ Sodium Chloride (Vancomycin Inj/ NS 250 ml Inj) 250 ml @ 250 mls/hr Q24H IV Last administered on 11/25/16 15:17; Start 11/21/16 at 15:00 Miscellaneous Information SPECIFIC LAB TO BE DRAWN:VANCOMYCIN TROUGH DATE TO... ONCE ONCE .XX Last administered on 11/23/16 14:45; Start 11/23/16 at 14:45; Stop 11/23/16 at 14:46; Status DC Amiodarone HCl (Cordarone) 200 mg ONCE ONCE PO Last administered on 11/22/16 04:30; Start 11/22/16 at 04:15; Stop 11/22/16 at 04:23; Status DC Enoxaparin Sodium (Lovenox Inj) 60 mg ONCE ONCE SQ Last administered on 04:30; Start 11/22/16 at 04:30; Stop 11/22/16 at 04:31; Status DC Atropine Sulfate (Atropine Inj) 1 mg STK-MED ONCE .ROUTE ; Start 11/22/16 at 05: 14; Stop 11/22/16 at 05:15; Status DC Epinephrine HCl (EPINEPHrine (1:10,000) INJ) 1 mg STK-MED ONCE .ROUTE ; Start at 05:14; Stop 11/22/16 at 05:15; Status DC Iohexol 65 ml 65 ml STK-MED ONCE IV Last administered on 11/22/16 05:33; Start 11/22/16 at 05:33; Stop 11/22/16 at 05:34; Status DC Cefepime HCl 2000 mg/Sodium Chloride 100 ml @ 200 mls/hr Q8H IV ; Start at 09:00; Stop 11/22/16 at 09:00; Status DC Amiodarone HCl 150 mg/Dextrose 100 ml @ 600 mls/hr NOW ONCE IV Last administered on 11/22/16 08:42; Start 11/22/16 at 09:00; Stop 11/22/16 at 09:09 ; Status DC Amiodarone HCl/ Dextrose (Cordarone Inj/ D5W ([place]) Inj) 250 ml @ 0 mls/hr CONTINUOUS IV Last administered on 11/22/16 17:18; Start 11/22/16 at 09:00; Stop 11/23/16 at 07:51; Status DC Midodrine (Proamatine) 10 mg TID@07,12,17 PO Last administered on 11/26/16 06: 40; Start 11/22/16 at 12:00 Diltiazem HCl 15 mg 15 mg BOLUS PRN IV PUSH SEE DOSE INSTRUCTIONS Last administered on 11/22/16 12:28; Start 11/22/16 at 12:00; Stop 11/23/16 at 11:59 ; Status DC Diltiazem HCl/ Sodium Chloride (Cardizem Inj/NS Inj) 125 ml @ 0 mls/hr TITRATE IV Last administered on 11/22/16 12:28; Start 11/22/16 at 12:00; Stop at 08:43; Status DC Levofloxacin (Levaquin) 500 mg DAILY PO Last administered on 11/23/16 08:17; Start 11/22/16 at 16:00; Stop 11/23/16 at 12:35; Status DC Miscellaneous Medication (ASP Crit: Path resist to other, cult proven) 1 UNSCH X1 PRN .XX PHARMACY DOCUMENTATION; Start 11/22/16 at 16:15; Stop 11/23/16 at 16 :14; Status DC Miscellaneous Medication 1 1 UNSCH X1 PRN XX PHARMACY DOCUMENTATION; Start at 16:15; Stop 11/23/16 at 16:14; Status DC Meropenem/Sodium Chloride (Merrem Inj/NS Inj) 100 ml @ 200 mls/hr Q8H IV Last administered on 11/26/16 01:07; Start 11/22/16 at 17:00 Diatrizoate Meglum/ Diatrizoate Sod (Md Calderon Liinez) 18 ml ONCE ONCE PO Last administered on 11/22/16 17:22; Start 11/22/16 at 17:00; Stop 11/22/16 at 17:01; Status DC Levofloxacin (Levaquin) 250 mg DAILY PO Last administered on 11/25/16 09:10; Start 11/24/16 at 09:00; Stop 12/01/16 at 08:59 Calcium Carbonate (Tums Chew) 500 mg BID PRN PO HEARTBURN Last administered on 11/23/16 17:28; Start 11/23/16 at 17:15 Iohexol (Omnipaque 350 Inj) 90 ml STK-MED ONCE IV Last administered on 21:20; Start 11/23/16 at 21:20; Stop 11/23/16 at 21:21; Status DC Miscellaneous Information SPECIFIC LAB TO BE MERT... ONCE ONCE .XX ; Start at 14:45; Stop 11/27/16 at 14:46 A/P Assessment and Plan A/P A. fib with RVR High degree AV block Left bundle branch block 2-D echo 20-25% however secondary to hypotension ESTELA inhibitor is contraindicated Amiodarone drip as well as Cardizem were discontinued 11/23/16 by cardiology Ideally patient would benefit from pacemaker or defibrillator, however he does not appear to be a surgical candidate in the face of this current infection. Poor candidate for oral anticoagulation Hospice consult appreciated and the patient agreed with the Hospice. Left lower inner buttock wound-[facility] associated pneumonia Currently on IV vancomycin , imipenem, Levaquin Wound care nurse consult appreciate Appreciate input from ID surgery is following and the plan is for debridement today. CTA with finding of Extensive consolidation left lower lobe-healthcare associated pneumonia Currently on imipenem, Levaquin Atypical chest pain ACS ruled out per protocol with serial cardiac enzyme and EKGs VQ scan with low probability for PE Continue aspirin and statin, however hold beta abilio secondary to hypotension 2-D echo 20-25% however secondary to hypotension ESTELA inhibitor is contraindicated CTA with finding of pleural effusion Systolic CHF 2-D echo 20-25% however secondary to hypotension ESTELA inhibitor is contraindicated Chest x-ray without any cardio pulmonary disease Due to hypotension with hold Lasix Imdur with holding parameters Hypotension Continue Midodrine 10mg TID Hold all oral anti hypertensive meds Hyperlipidemia continue statin DVT prophylaxis: Bilateral SCDs Hospice has been consulted Discharge Planning dc to SNF with Hospice-after the debridement. see med list. f/u with hospice. d/w the patient and RN. time spent 32 min. Judie Vazquez MD Nov 26, 2016 09:00
[2016-11-26] MEDS: ISOSORBIDE MONONITRATE 30 MG TAB PO SCH (10:35)
[2016-11-26] MEDS: predniSONE 5 MG TAB PO SCH (10:35)
[2016-11-26] MEDS: AMANTADINE HCL 100 MG CAP PO SCH (10:35)
[2016-11-26] MEDS: ASPIRIN EC 81 MG TABEC PO SCH (10:35)
[2016-11-26] MEDS: LEVOFLOXACIN 250 MG TAB PO SCH (10:36)
[2016-11-26] MEDS ORDERED: ONDANSETRON HCL 4 MG/2 ML VIAL IV PUSH ONE (12:00)
[2016-11-26] MEDS ORDERED: PROPOFOL 200 MG/20 ML AMP IV ONE (12:00)
[2016-11-26] MEDS: VANCOMYCIN INJ 1,000 MG in SODIUM CHLOR 0.9% 250 ML INJ 250 ML IV SCH (14:25)
[2016-11-26] MEDS ORDERED: KETAMINE HCL 500 MG/5 ML VIAL ONE (15:36)
[2016-11-26] MEDS ORDERED: SUGAMMADEX SODIUM 200 MG/2 ML VIAL IV PUSH ONE ×2 (16:47)
[2016-11-26] MEDS ORDERED: MIDAZOLAM HCL 2 MG/2 ML VIAL ONE (17:14)
[2016-11-26] MEDS ORDERED: fentaNYL CITRATE 250 MCG/5 ML AMP ONE (17:14)
[2016-11-26] MEDS ORDERED: DO NOT ADM ANY ANTICOAGULANT DRUGS PRN (17:45)
[2016-11-26] MEDS: ATORVASTATIN 80 MG TAB PO SCH (20:47)
[2016-11-26] MEDS: MORPHINE SULFATE 4 MG/ML INJ IV PUSH PRN (20:47)
[2016-11-27] VITALS (21 sets, daily range): BP systolic 124–140; BP diastolic 64–92; PULSE 76–97; RESP 18–20; TEMP 97.4–98; O2SAT 94–98
[2016-11-27] MEDS: MEROPENEM INJ 500 MG in SODIUM CHLORIDE 0.9% INJ 100 ML IV SCH ×3 (00:28→17:00)
[2016-11-27] MEDS: MORPHINE SULFATE 4 MG/ML INJ IV PUSH PRN ×2 (01:57→14:00)
[2016-11-27] MEDS: MIDODRINE 5 MG TAB PO SCH ×3 (05:42→18:09)
--- NOTE | 2016-11-27 08:22 | MP ---
cc: AJAY SMITH MD DATE OF SURGERY: 11/26/2016 PREOPERATIVE DIAGNOSIS Sacral decubitus ____ respiratory failure, CHF and sepsis. POSTOPERATIVE DIAGNOSIS Sacral decubitus ____ respiratory failure, CHF and sepsis. PROCEDURE Debridement of sacral decubitus measuring about [address] Smith. ANESTHESIA General. ESTIMATED BLOOD LOSS 20 ccs. PROCEDURE The patient was prepped and draped in usual fashion and put in lateral decubitus position. With a 10 blade the entire devitalized skin portion is removed and then incision was made into the clean skin, the decubitus reaches subcutaneous tissue but does not reach further to the muscles or the bone. All the skin and subcutaneous tissue is removed until the clean tissue is present. Meticulous hemostasis was obtained. The area was irrigated, packed with Betadine gauze and dressed. The patient tolerated the procedure well. Ajay NICOLAS/ROSIEL /8:43 PM /8:02 AM
[2016-11-27] MEDS: AMANTADINE HCL 100 MG CAP PO SCH (08:24)
[2016-11-27] MEDS: predniSONE 5 MG TAB PO SCH (08:25)
[2016-11-27] MEDS: LEVOFLOXACIN 250 MG TAB PO SCH (08:25)
[2016-11-27] MEDS: ASPIRIN EC 81 MG TABEC PO SCH (08:25)
[2016-11-27] MEDS: ISOSORBIDE MONONITRATE 30 MG TAB PO SCH (08:25)
[2016-11-27] MEDS: SODIUM CHLORIDE 0.9% FLUSH 10 ML FLUSH IV FLUSH SCH (08:25)
--- NOTE | 2016-11-27 12:09 | HHI.PR ---
Subjective Remarks in no acute distress. has mild back pain. no fever. wants to be discharged today. Objective Vitals Vital Signs Date Time Temp Pulse Resp B/P Pulse Ox O2 Delivery O2 Flow Rate FiO2 11/27/16 11:55 97.6 85 18 140/78 95 11/27/16 10:26 97 11/27/16 08:29 97.5 85 20 126/80 94 11/27/16 06:00 82 11/27/16 05:00 80 11/27/16 04:00 97.5 85 18 124/90 98 11/27/16 04:00 80 11/27/16 03:00 80 11/27/16 02:00 79 11/27/16 01:00 80 11/27/16 00:00 76 11/27/16 00:00 97.4 76 18 124/64 98 11/26/16 23:00 74 11/26/16 22:00 80 11/26/16 21:00 82 11/26/16 20:00 74 11/26/16 20:00 97.7 81 16 124/94 100 11/26/16 19:00 76 11/26/16 18:30 79 11/26/16 18:09 80 20 126/89 96 11/26/16 18:00 97.8 78 16 118/72 98 Nasal Cannula 2 11/26/16 17:45 77 15 120/73 97 Nasal Cannula 2 11/26/16 17:30 78 14 126/72 99 Nasal Cannula 3 11/26/16 17:15 79 13 121/75 98 Nasal Cannula 3 11/26/16 17:05 97.5 78 12 124/75 100 Simple Mask 7 11/26/16 16:00 75 11/26/16 15:06 97.6 80 18 117/81 100 11/26/16 15:06 81 11/26/16 14:00 84 11/26/16 13:53 88 19 114/81 95 I/O 11/26/16 11/26/16 11/26/16 11/27/16 11/27/16 11/27/16 07:00 15:00 23:00 07:00 15:00 23:00 Intake Total 365 ml 1250 ml 240 ml Output Total 200 ml 10 ml 100 ml Balance 165 ml 1240 ml 140 ml Intake Oral 240 ml 240 ml IV Total 125 ml 450 ml Other 800 ml Output Urine Total 200 ml 100 ml Estimated Blood Loss 10 ml # Voids 2 4 2 # Bowel Movements 0 Result Diagram: 11/26/16 [address] Angiography 11/22/16 0000 Signed Impressions: Service Date/Time: Tuesday, November 22, 2016 05:21 - CONCLUSION: No evidence of pulmonary embolism. Bilateral pleural effusions left greater then right. Extensive consolidation left lower lobe. Eleazar Heller MD Abdomen/Pelvis CT 11/22/16 0000 Signed Impressions: Service Date/Time: Wednesday, November 23, 2016 21:17 - CONCLUSION: 1. Mild amount of free fluid in the dependent pelvis. 2. Stable moderate-sized bilateral pleural effusions and lower lobe consolidation. 3. Hepatic and right renal cysts. William Sanders MD Chest X-Ray 11/19/16 1007 Signed Impressions: Service Date/Time: Saturday, November 19, 2016 10:29 - CONCLUSION: 1. No acute cardiopulmonary disease. Khadar Thakkar MD Lung Scan-V Nuclear Medicine 11/19/16 0000 Signed Impressions: Service Date/Time: Saturday, November 19, 2016 12:46 - CONCLUSION: Low probability scan for pulmonary embolism. Rod Hdez MD Objective Remarks GENERAL: in no apparent distress. CARDIOVASCULAR: Regular rate and regular rhythm without murmurs, gallops, or rubs. RESPIRATORY: Clear to auscultation. Breath sounds equal bilaterally. No wheezes , rales, or rhonchi. GASTROINTESTINAL: Abdomen soft, non-tender, nondistended. Normal, active bowel sounds MUSCULOSKELETAL: Extremities without clubbing, cyanosis, or edema. NEURO: Alert & Oriented x4 to person, place, time, situation. Moves all ext x4 Procedures none Medications and IVs Current Medications Sodium Chloride 2 ml 2 ml UNSCH PRN IVF FLUSH AFTER USING IV ACCESS Last administered on 11/19/16 10:17; Start 11/19/16 at 10:15; Stop 11/19/16 at 13:13 ; Status DC Sodium Chloride (NS 500 ml Inj) 500 ml @ 500 mls/hr ONCE ONCE IV Last administered on 11/19/16 10:17; Start 11/19/16 at 10:15; Stop 11/19/16 at 11:14 ; Status DC Sodium Chloride (NS Flush) 2 ml UNSCH PRN IV FLUSH FLUSH AFTER USING IV ACCESS ; Start 11/19/16 at 13:15 Sodium Chloride (NS Flush) 2 ml BID IV FLUSH Last administered on 11/27/16 08: 25; Start 11/19/16 at 21:00 Acetaminophen (Tylenol) 650 mg Q4H PRN PO TEMP > 100.4; Start 11/19/16 at 13:15 Ondansetron HCl (Zofran Inj) 4 mg Q6H PRN IVP NAUSEA OR VOMITING Last administered on 11/23/16 05:12; Start 11/19/16 at 13:15 Acetaminophen (Tylenol) 650 mg Q6H PRN PO PAIN SCALE 1 TO 2; Start 11/19/16 at 13:15 Naloxone HCl 0.4 mg 0.4 mg UNSCH PRN IV SEE LABEL COMMENTS; Start 11/19/16 at 13:15 Sodium Chloride (NS 250 ml Inj) 250 ml @ 250 mls/hr BOLUS ONCE IV Last administered on 11/19/16 17:18; Start 11/19/16 at 15:30; Stop 11/19/16 at 16:33 ; Status DC Amantadine HCl (Symmetrel) 100 mg DAILY PO Last administered on 11/27/16 08:24 ; Start 11/20/16 at 09:00 Aspirin (Ecotrin Ec) 81 mg DAILY PO Last administered on 11/27/16 08:25; Start 11/20/16 at 09:00 Atorvastatin Calcium (Lipitor) 80 mg HS PO Last administered on 11/26/16 20:47 ; Start 11/19/16 at 21:00 Isosorbide Mononitrate (Imdur) 30 mg DAILY PO Last administered on 11/27/16 08: 25; Start 11/20/16 at 09:00 Prednisone (Deltasone) 5 mg DAILY PO Last administered on 11/27/16 08:25; Start 11/20/16 at 09:00 Midodrine (Proamatine) 5 mg TID@07,12,17 PO Last administered on 11/22/16 06: 12; Start 11/20/16 at 08:45; Stop 11/22/16 at 08:55; Status DC Albuterol/ Ipratropium 1 ampule 1 ampule Q2HR NEB PRN NEB SOB/WHEEZING; Start 11/20/16 at 08:45 Pharmacy Profile Note 0 ml @ 0 mls/hr UNSCH OTHER ; Start 11/20/16 at 14:00 Vancomycin HCl 1000 mg/Sodium Chloride 250 ml @ 250 mls/hr Q12H IV Last administered on 11/20/16 15:20; Start 11/20/16 at 14:00; Stop 11/20/16 at 15:28 ; Status DC Piperacillin Sod/ Tazobactam Sod (Zosyn 2.25 Gm Premix) 50 ml @ 100 mls/hr Q8H IV Last administered on 11/20/16 18:00; Start 11/20/16 at 18:00; Stop at 21:39; Status DC Amiodarone HCl 200 mg 200 mg ONCE ONCE PO Last administered on 11/20/16 15:34 ; Start 11/20/16 at 16:00; Stop 11/20/16 at 16:01; Status DC Vancomycin HCl/ Sodium Chloride (Vancomycin Inj/ NS 250 ml Inj) 250 ml @ 250 mls/hr Q24H IV Last administered on 11/26/16 14:25; Start 11/21/16 at 15:00 Miscellaneous Information SPECIFIC LAB TO BE DRAWN:VANCOMYCIN TROUGH DATE TO... ONCE ONCE .XX Last administered on 11/23/16 14:45; Start 11/23/16 at 14:45; Stop 11/23/16 at 14:46; Status DC Amiodarone HCl (Cordarone) 200 mg ONCE ONCE PO Last administered on 11/22/16 04:30; Start 11/22/16 at 04:15; Stop 11/22/16 at 04:23; Status DC Enoxaparin Sodium (Lovenox Inj) 60 mg ONCE ONCE SQ Last administered on 04:30; Start 11/22/16 at 04:30; Stop 11/22/16 at 04:31; Status DC Atropine Sulfate (Atropine Inj) 1 mg STK-MED ONCE .ROUTE ; Start 11/22/16 at 05: 14; Stop 11/22/16 at 05:15; Status DC Epinephrine HCl (EPINEPHrine (1:10,000) INJ) 1 mg STK-MED ONCE .ROUTE ; Start at 05:14; Stop 11/22/16 at 05:15; Status DC Iohexol 65 ml 65 ml STK-MED ONCE IV Last administered on 11/22/16 05:33; Start 11/22/16 at 05:33; Stop 11/22/16 at 05:34; Status DC Cefepime HCl 2000 mg/Sodium Chloride 100 ml @ 200 mls/hr Q8H IV ; Start at 09:00; Stop 11/22/16 at 09:00; Status DC Amiodarone HCl 150 mg/Dextrose 100 ml @ 600 mls/hr NOW ONCE IV Last administered on 11/22/16 08:42; Start 11/22/16 at 09:00; Stop 11/22/16 at 09:09 ; Status DC Amiodarone HCl/ Dextrose (Cordarone Inj/ D5W ([place]) Inj) 250 ml @ 0 mls/hr CONTINUOUS IV Last administered on 11/22/16 17:18; Start 11/22/16 at 09:00; Stop 11/23/16 at 07:51; Status DC Midodrine (Proamatine) 10 mg TID@07,12,17 PO Last administered on 11/27/16 05: 42; Start 11/22/16 at 12:00 Diltiazem HCl 15 mg 15 mg BOLUS PRN IV PUSH SEE DOSE INSTRUCTIONS Last administered on 11/22/16 12:28; Start 11/22/16 at 12:00; Stop 11/23/16 at 11:59 ; Status DC Diltiazem HCl/ Sodium Chloride (Cardizem Inj/NS Inj) 125 ml @ 0 mls/hr TITRATE IV Last administered on 11/22/16 12:28; Start 11/22/16 at 12:00; Stop at 08:43; Status DC Levofloxacin (Levaquin) 500 mg DAILY PO Last administered on 11/23/16 08:17; Start 11/22/16 at 16:00; Stop 11/23/16 at 12:35; Status DC Miscellaneous Medication (ASP Crit: Path resist to other, cult proven) 1 UNSCH X1 PRN .XX PHARMACY DOCUMENTATION; Start 11/22/16 at 16:15; Stop 11/23/16 at 16 :14; Status DC Miscellaneous Medication 1 1 UNSCH X1 PRN XX PHARMACY DOCUMENTATION; Start at 16:15; Stop 11/23/16 at 16:14; Status DC Meropenem/Sodium Chloride (Merrem Inj/NS Inj) 100 ml @ 200 mls/hr Q8H IV Last administered on 11/27/16 08:24; Start 11/22/16 at 17:00 Diatrizoate Meglum/ Diatrizoate Sod ( Gastromaribel Liq) 18 ml ONCE ONCE PO Last administered on 11/22/16 17:22; Start 11/22/16 at 17:00; Stop 11/22/16 at 17:01; Status DC Levofloxacin (Levaquin) 250 mg DAILY PO Last administered on 11/27/16 08:25; Start 11/24/16 at 09:00; Stop 12/01/16 at 08:59 Calcium Carbonate (Tums Chew) 500 mg BID PRN PO HEARTBURN Last administered on 11/23/16 17:28; Start 11/23/16 at 17:15 Iohexol (Omnipaque 350 Inj) 90 ml STK-MED ONCE IV Last administered on 21:20; Start 11/23/16 at 21:20; Stop 11/23/16 at 21:21; Status DC Miscellaneous Information SPECIFIC LAB TO BE MERT... ONCE ONCE .XX ; Start at 14:45; Stop 11/27/16 at 14:46 Ketamine HCl (Ketalar Inj) 500 mg STK-MED ONCE .ROUTE ; Start 11/26/16 at 15:36; Stop 11/26/16 at 15:37; Status DC Sugammadex Sodium (Bridion Inj) 200 mg STK-MED ONCE IV PUSH ; Start 11/26/16 at 16:47; Stop 11/26/16 at 16:48; Status DC Midazolam HCl (Versed Inj) 2 mg STK-MED ONCE .ROUTE ; Start 11/26/16 at 17:14; Stop 11/26/16 at 17:15; Status DC Fentanyl Citrate (fentaNYL INJ) 250 mcg STK-MED ONCE .ROUTE ; Start 11/26/16 at 17:14; Stop 11/26/16 at 17:15; Status DC Miscellaneous Information ALL NURSING DEPARTME... UNSCH PRN .XX SEE LABEL COMMENTS; Start 11/26/16 at 17:45; Stop 11/27/16 at 17:44 Morphine Sulfate (Morphine Inj) 2 mg Q6H PRN IV PUSH pain >5 Last administered on 11/27/16t 01:57; Start 11/26/16 at 20:30 A/P Assessment and Plan A/P A. fib with RVR High degree AV block Left bundle branch block 2-D echo 20-25% however secondary to hypotension ESTELA inhibitor is contraindicated Amiodarone drip as well as Cardizem were discontinued 11/23/16 by cardiology Ideally patient would benefit from pacemaker or defibrillator, however he does not appear to be a surgical candidate in the face of this current infection. Poor candidate for oral anticoagulation Hospice consult appreciated and the patient agreed with the Hospice. Left lower inner buttock wound-[facility] associated pneumonia Currently on IV vancomycin , imipenem, Levaquin Wound care nurse consult appreciate Appreciate input from ID s/p wound debridement CTA with finding of Extensive consolidation left lower lobe-healthcare associated pneumonia Currently on imipenem, Levaquin Atypical chest pain ACS ruled out per protocol with serial cardiac enzyme and EKGs VQ scan with low probability for PE Continue aspirin and statin, however hold beta abilio secondary to hypotension 2-D echo 20-25% however secondary to hypotension ESTELA inhibitor is contraindicated CTA with finding of pleural effusion Systolic CHF 2-D echo 20-25% however secondary to hypotension ESTELA inhibitor is contraindicated Chest x-ray without any cardio pulmonary disease Due to hypotension with hold Lasix Imdur with holding parameters Hypotension Continue Midodrine 10mg TID Hold all oral anti hypertensive meds Hyperlipidemia continue statin DVT prophylaxis: Bilateral SCDs Hospice has been consulted Discharge Planning dc to SNF with Hospice-when cleared by vascular surgery. no antibiotics upon discharge per my d/w . see med list. f/u with hospice. d/w the patient and RN. d/w . time spent 32 min. Judie Vazquez MD Nov 27, 2016 12:09
[2016-11-27] MEDS: VANCOMYCIN INJ 1,000 MG in SODIUM CHLOR 0.9% 250 ML INJ 250 ML IV SCH ×2 (13:45→15:00)
[2016-11-27] MEDS: CALCIUM CARBONATE 500 MG CHEWABLE TAB PO PRN ×2 (14:00→18:08)
[2016-11-27] MEDS ORDERED: PHARMACY ORDERED LAB ONE (14:45)
--- NOTE | 2016-11-27 15:44 | PD.WCN.NOT ---
Wound Consult Description: Consult for PRESSURE ULCER of sacrum per Dr Aguilera Communicated with: Aleida,RN Dr Vazquez Recommendation: Sacrum wound every 3-5 days and PRN for soiling or dislodgement: Cleanse wound with NS and gauze Place oil emulsion (adaptic) into base of wound on exposed fascia, gently place Maxorb cut to fit into wound bed (if Maxorb is not available use fluffed 2x2 gauze) and secure with a foam dressing or dry cover such as a bordered gauze after protecting periwound with skin prep, if available. Additional Information: Patient seen on [facility] post op debridement per Dr Garcia. Patient was positioned to his right side for assessment and noted to by on a Renate specialty surface. Wound on sacrum was visualized and cleansed with NS and gauze. Wound bed is noted with ~80% fascia and ~20% adipose tissue. Wound measures 5.8cm x 4.7cm x 1.3cm with sharp open wound margins and unremarkable periwound. There is no active drainage and no odor noted to wound at this time. Wound was lightly and gently packed with one NS moistened 4x4, periwound skin prepped using Cavilon skin barrier film, and secured with a foam dressing that may remain in place for up to 5 days unless soiled or dislodged. Taking into consideration that patient states he is "going to that place to " referring to hospice, certain supplies may not be available. Therefore recommendations above have been modified for planned transfer to Hospice making dressing changes less frequent and if supplies are available, more comfortable, considering he will be comfort measures only. Anat Roman [facility] Nov 27, 2016 15:44 Wound Location: Consult for WOUND MANAGEMENT of buttock per Dr Shaikh/Anat Balderas [facility] Nov 27, 2016 15:44
--- NOTE | 2016-11-27 16:15 | PD.CAR.PN ---
CVT Progress Note Subjective/Hospital Course: 71-year-old gentleman with multiple comorbidities, thin and malnourished appearing. Severe cardiac dysfunction with ejection fraction between 20 and 25% . Patient is scheduled to go to hospice however has a draining decubitus on his sacrum and needs to be debrided prior to discharge Patient is clearly at high risk candidate for any surgery but we will do her short operation with minimal anesthetic and surgical intrusion to the physiologic parameters Patient is as optimized as he can be at this point and we'll go ahead with debridement tomorrow Have discussed the risks and benefits with patient in detail 11/27/16 Vital signs stable Wet-to-dry dressing changes ordered as well as wound care consult once the area of the sacrum starts to granulate Patient to be discharged to hospice Does not need follow-up with me at this time Wound care further as per wound care nursing instructions Objective: Vital Signs Date Time Temp Pulse Resp B/P Pulse Ox O2 Delivery O2 Flow Rate FiO2 11/27/16 14:46 18 11/27/16 12:00 82 11/27/16 11:55 97.6 85 18 140/78 95 11/27/16 10:26 97 11/27/16 08:29 97.5 85 20 126/80 94 11/27/16 08:00 82 11/27/16 06:00 82 11/27/16 05:00 80 11/27/16 04:00 97.5 85 18 124/90 98 11/27/16 04:00 80 11/27/16 03:00 80 11/27/16 02:00 79 11/27/16 01:00 80 11/27/16 00:00 76 11/27/16 00:00 97.4 76 18 124/64 98 11/26/16 23:00 74 11/26/16 22:00 80 11/26/16 21:00 82 11/26/16 20:00 74 11/26/16 20:00 97.7 81 16 124/94 100 11/26/16 19:00 76 11/26/16 18:30 79 11/26/16 18:09 80 20 126/89 96 11/26/16 18:00 97.8 78 16 118/72 98 Nasal Cannula 2 11/26/16 17:45 77 15 120/73 97 Nasal Cannula 2 11/26/16 17:30 78 14 126/72 99 Nasal Cannula 3 11/26/16 17:15 79 13 121/75 98 Nasal Cannula 3 11/26/16 17:05 97.5 78 12 124/75 100 Simple Mask 7 Result Diagram: 11/26/16 1026 Ajay Aguilera MD Nov 27, 2016 16:15
--- NOTE | 2016-12-05 08:45 | PQ ---
Physician Query Response Document PATIENT: CATRACHITO SHULTZ : 1945 ADMIT DATE: 11/19/2016 1:12 PM DISCH DATE: 11/27/2016 8:25 PM RESPONDING PROVIDER #: Travis QUERY TEXT: Clarification of Clinical Diagnostic Findings Please clarify the appropriate diagnosis for this patient. SEPSIS 2. Foreman Or Supervisor And Operator documented the following information with no mention of this diagnosis in your documen tation. Please indicate in your next progress note and/or discharge summary your agreement with cons ultant or provide clarification that this diagnosis is not a current condition. Diagnosis: _POSS SEPSIS ON ADMISSION_Documented by: DR Jeremy VIEYRA Location: ID CONSULTATION NOTE 1) SEPSIS PRESENT ON ADMISSION 2) SEVERE SEPSIS PRESENT ON ADMISSION 3) SEPSIS RULED OUT 4) NO SEPSIS 5) OTHER , PLEASE EXPLAIN The patient's Clinical Indicators include: PER ID CONSULT: Assessment and Plan Possible Sepsis present on admission (leucocytosis, hypotension). Patient is on chronic steroids and immunecompromised and may not manifest all signs of infection. Pneumonia present on admission ([facility] of prison, multiple admissions to hospital for PNA per patient) Query created by: Yaneth Reinoso on 11/24/2016 3:59 PM RESPONSE TEXT: Provider disagreed with this CDI query. Possible per ID however did not confirm; therefore will not say sepsis present on admission Electronically signed by: Liang Shaikh MD 12/05/2016 8:40 AM
== END 2016-11-27 20:25 | disposition hospice, inpatient (51) | DRG 264 ==
LOC: NEPC 09:50 → NEDA 12:29 → OBSVTOIN 13:12 → NEDH 20:19 → NEPGCP 11-20 01:20 → HCIS 11-20 16:13
PROVIDERS: ADMIT Internal Medicine; ATTEND Internal Medicine
PROC: 0JB70ZZ Excision of Back Subcutaneous Tissue and Fascia, Open Approach (ICD-10-PCS; principal; 2016-11-26 16:03)
DX: I95.9 Hypotension, unspecified (principal); J18.9 Pneumonia, unspecified organism; N17.9 Acute kidney failure, unspecified; I13.0 Hypertensive heart and chronic kidney disease with heart failure and stage 1 through stage 4 chronic kidney disease, or unspecified chronic kidney disease; R64 Cachexia; L89.153 Pressure ulcer of sacral region, stage 3; I45.3 Trifascicular block; I50.22 Chronic systolic (congestive) heart failure; J44.0 Chronic obstructive pulmonary disease with (acute) lower respiratory infection; I45.2 Bifascicular block; L03.317 Cellulitis of buttock; J44.9 Chronic obstructive pulmonary disease, unspecified; G35 Multiple sclerosis; I48.91 Unspecified atrial fibrillation; E78.5 Hyperlipidemia, unspecified; R07.9 Chest pain, unspecified; I25.10 Atherosclerotic heart disease of native coronary artery without angina pectoris; I25.5 Ischemic cardiomyopathy; B95.62 Methicillin resistant Staphylococcus aureus infection as the cause of diseases classified elsewhere; N18.9 Chronic kidney disease, unspecified; I44.30 Unspecified atrioventricular block; B96.20 Unspecified Escherichia coli [E. coli] as the cause of diseases classified elsewhere; I44.7 Left bundle-branch block, unspecified; Y95 Nosocomial condition; Z66 Do not resuscitate; Z74.01 Bed confinement status; Z87.891 Personal history of nicotine dependence; Z95.5 Presence of coronary angioplasty implant and graft; I25.2 Old myocardial infarction; Z79.52 Long term (current) use of systemic steroids
CPT/HCPCS: 71010; 71275; 74177; 76937; 78582; 80048; 80053; 80202; 81001; 82550; 82565; 83690; 83735; 83880; 84132; 84484; 85025; 85379; 85610; 85730; 86403; 87040; 87070; 87077; 87086; 87147; 87186; 87205; 93005; 93306; 96360; A9540; A9567; G8987-GP; G8988-GP; J0171; J0282; J0461; J1650; J2185; J2250; J2270; J2405; J2543; J3010; J3370; J7040; J7050; J7060; J7512; Q9963; Q9967